=== PATIENT | female | born 1980 | race Caucasian/White ===

== ENCOUNTER 2016-05-23 09:22 | Emergency (ER) | payer OTHER ==
[2016-05-23 09:36] VITALS: BP 144/73
[2016-05-23] MEDS ORDERED: Ketorolac INJ* 60 MG/2 ML VIAL IM ONE (09:43)
--- NOTE | 2016-05-23 09:53 | ED ---
Lower Extremity - HPI Summary HPI Summary: Patient arrives with L ankle pain after inversion of ankle while tripping last evening. Denies knee or lower leg pain. Denies LOC or hitting her head. Patient had been drinking. States she did not come in until this morning because she thought the pain would go away and didn't injure it too bad, but today is unable to bear weight. She has not tried anything for the pain. She is unable to flex or extend at the ankle. Pulses intact bilaterally. Ecchymosis noted over the lateral part of the ankle. Patient otherwise healthy. - History of Current Complaint Chief Complaint: EDExtremityLower Stated Complaint: LT FOOT INJURY Time Seen by Provider: 05/23/16 09:24 Hx Obtained From: Patient Hx Last Menstrual Period: 10/12/14 Mechanism Of Injury: Fall From A Standing Position Onset of Pain: Immediate Onset/Duration: Hours Severity Initially: Moderate Severity Currently: Moderate Pain Intensity: 7 Pain Scale Used: 0-10 Numeric Timing: Constant Character Of Pain: Throbbing Associated Signs And Symptoms: Positive: Swelling, Bruising Aggravating Factor(s): Standing, Ambulation Alleviating Factor(s): Rest Able to Bear Weight: No - Risk Factors Gout Risk Factors: Negative DVT Risk Factors: Negative Septic Arthritis Risk Factor: Negative - Allergies/Home Medications Allergies/Adverse Reactions: Allergies Allergy/AdvReac Type Severity Reaction Status Date / Time Aspirin [ASA] Allergy Mild GI Upset Verified 05/23/16 09:36 Codeine Allergy Mild GI Upset Verified 05/23/16 09:36 Latex Allergy Mild Rash Verified 05/23/16 09:36 Penicillins Allergy Hives Verified 05/23/16 09:36 Ranitidine [From Zantac] Allergy Hives Verified 05/23/16 09:36 PMH/Surg Hx/FS Hx/Imm Hx Previously Healthy: Yes Endocrine/Hematology History: Reports: Hx Anemia Denies: Hx Anticoagulant Therapy, Hx Diabetes, Hx Thyroid Disease, Other Endocrine/Hematological Disorders Cardiovascular History: Reports: Hx Congestive Heart Failure, Other Cardiovascular Problems/Disorders - myopericarditis, cardiomyopathy, aortic valve disorder Denies: Hx Hypertension Respiratory History: Reports: Hx Pneumonia, Other Respiratory Problems/ Disorders - Bronchitis Denies: Hx Asthma, Hx Chronic Obstructive Pulmonary Disease (COPD) GI History: Reports: Hx Gastroesophageal Reflux Disease, Hx Ulcer - , Other GI Disorders - GERD History: Denies: Hx Renal Disease, Other Problems/Disorders Musculoskeletal History: Reports: Hx Back Problems Denies: Other Musculoskeletal History Sensory History: Denies: Other Sensory Impairments Opthamlomology History: Denies: Other Sensory Impairments Neurological History: Reports: Hx Headaches, Hx Migraine Denies: Other Neuro Impairments/Disorders Psychiatric History: Reports: Hx Anxiety, Hx Depression Denies: Other Psychiatric Issues/Disorders - Surgical History Surgery Procedure, Year, and Place: Tubal Ligation; lymph node removed x 2 - Immunization History Date of Tetanus Vaccine: unknown to patient Date of Influenza Vaccine: None Infectious Disease History: No Infectious Disease History: Denies: Hx Clostridium Difficile, Hx Hepatitis, Hx Human Immunodeficiency Virus (HIV), Hx of Known/Suspected MRSA, Hx Shingles, Hx Tuberculosis, Hx Known/ Suspected VRE, Hx Known/Suspected VRSA, History Other Infectious Disease, Traveled Outside the [place] in Last 30 Days - Family History Known Family History: Positive: Hypertension - Social History Occupation: Employed Full-time Lives: With Family Alcohol Use: Rare Substance Use Type: Reports: None Hx Tobacco Use: Yes Smoking Status (MU): Current Every Day Smoker Type: Cigarettes Amount Used/How Often: 5/DAY Have You Smoked in the Last Year: Yes Review of Systems Constitutional: Negative Eyes: Negative Cardiovascular: Negative Genitourinary: Negative Positive: Arthralgia, Decreased ROM, Edema Skin: Negative Neurological: Negative Psychological: Normal All Other Systems Reviewed And Are Negative: Yes Physical Exam Triage Information Reviewed: Yes Vital Signs On Initial Exam: Initial Vitals Temp Pulse Resp BP Pulse Ox 98.2 F 88 16 144/73 100 05/23/16 09:25 05/23/16 09:25 05/23/16 09:25 05/23/16 09:25 05/23/16 09:25 Vital Signs Reviewed: Yes Appearance: Positive: Well-Appearing, Well-Nourished, Pain Distress Skin: Positive: Warm, Skin Color Reflects Adequate Perfusion, Other - ecchymosis over lateral aspect of left ankle with slight swelling Eyes: Positive: Normal, EOMI, PEDRO, Conjunctiva Clear Neck: Positive: Supple, Nontender Respiratory/Lung Sounds: Positive: Clear to Auscultation Cardiovascular: Positive: Normal Musculoskeletal: Positive: Limited @, Interruption @, Pain @ - left lateral ankle. unable to flex or extend. Unable to perform anterior drawer. Unable to perform talar tilt test d/t pain. Tinel test negative. Good pulses bilaterally. ROM and strength limited d/t pain. Neurological: Positive: Sensory/Motor Intact, Speech Normal Psychiatric: Positive: Normal Diagnostics - Vital Signs Vital Signs Temp Pulse Resp BP Pulse Ox 05/23/16 09:25 98.2 F 88 16 144/73 100 - Laboratory Lab Statement: Any lab studies that have been ordered have been reviewed, and results considered in the medical decision making process. Lower Extremity Course/Dx - Course Course Of Treatment: Patient sent to xray. Toradol given for pain. Negative for fracture. Patient already had crutches. Note sent to be off work until tuesday. Follow up with ortho as needed. - Diagnoses Differential Diagnosis/HQI/PQRI: Positive: Fracture (Closed), Sprain, Strain Provider Diagnoses: Ankle sprain Discharge - Discharge Plan Condition: Stable Disposition: HOME Prescriptions: Naproxen [Naproxen 500 MG TABS] 500 mg PO BID #20 tab Ondansetron ODT TAB* [Zofran Odt TAB*] 4 mg PO Q6H PRN #15 tab.odt MDD 6 PRN Reason: Nausea Patient Education Materials: Ankle Sprain (ED), Ankle Exercises (GEN) Forms: *Work Release Referrals: Tatiana Perea MD [Primary Care Provider] - Additional Instructions: Soft Tissue Injuries Notes to patient from your provider: Protect the area. For your comfort level, do not bear weight, pull or push until you can injury is somewhat healed. This may involve the need for immobilization or crutches for a period of time. Rest the involved area, but not too long. You may need to be off your injury for some time to allow for healing, however excessive immobilization of joints can lead to stiffness and delay healing time. Early mobilization is encouraged if it is pain-free. Ice. Not directly on the skin. Cover with a towel. Apply ice no more than 30 minutes at a time Compression: You may use an venice wrap bandage over the injury to decrease swelling. Again, this should be limited and be taken off periodically to encourage early range of motion and mobilization. Elevate: Try to elevate the injured area above the heart whenever possible. Rehabilitation: Follow up with an orthopedic physician. They may encourage a short period of rehabilitation of the injury to limit the likelihood of permanent joint stiffness and instability.
--- NOTE | 2016-05-23 10:48 | RAD ---
INDICATION: Left ankle pain after inversion injury COMPARISON: Left foot radiograph dated October 23, 2013 TECHNIQUE: 3 views of the left ankle were obtained. FINDINGS: The well corticated bones exhibit normal alignment. Joint spaces appear maintained. No fracture is seen. IMPRESSION: Normal ankle radiograph. If the patient's symptoms persist, follow-up imaging is recommended.
== END 2016-05-23 11:06 | disposition home or self-care (01) ==
LOC: ED 09:22
DX: S93.402A Sprain of unspecified ligament of left ankle, initial encounter (principal); W18.09XA Striking against other object with subsequent fall, initial encounter; Y92.9 Unspecified place or not applicable; I50.9 Heart failure, unspecified; K21.9 Gastro-esophageal reflux disease without esophagitis; F17.210 Nicotine dependence, cigarettes, uncomplicated; F41.9 Anxiety disorder, unspecified; F32.9 Major depressive disorder, single episode, unspecified
CPT/HCPCS: 96372; 99282; J1885

== ENCOUNTER 2016-08-01 15:08 | Emergency (ER) | payer OTHER ==
[2016-08-01 15:46] VITALS: BP 130/69
[2016-08-01] MEDS ORDERED: traMADol TAB* 50 MG PO ONE (15:48)
--- NOTE | 2016-08-01 15:50 | UC ---
Lower Extremity/Ankle HPI - HPI Summary HPI Summary: patient had a twisting injury to the left foot 7 weeks ago, was seen in the Er and Dx with sprain. she has been unable to tolertate the spint feels like the top and lateral side of left foot is burning and tender to touch. - History of Current Complaint Chief Complaint: UCLowerExtremity Stated Complaint: LEFT FOOT PAIN Time Seen by Provider: 08/01/16 15:32 Hx Obtained From: Patient Hx Last Menstrual Period: 07/14/16 ?: No Onset/Duration: Sudden Onset, Lasting Weeks Severity Initially: Severe Severity Currently: Moderate Aggravating Factor(s): Standing, Ambulation Alleviating Factor(s): Nothing Able to Bear Weight: Yes - Allergies/Home Medications Allergies/Adverse Reactions: Allergies Allergy/AdvReac Type Severity Reaction Status Date / Time Aspirin [ASA] Allergy Mild GI Upset Verified 08/01/16 15:33 Codeine Allergy Mild GI Upset Verified 08/01/16 15:33 Latex Allergy Mild Rash Verified 08/01/16 15:33 Penicillins Allergy Hives Verified 08/01/16 15:33 Ranitidine [From Zantac] Allergy Hives Verified 08/01/16 15:33 Home Medications: Home Medications Ferrous Sulfate [Fe Tabs] 325 mg PO DAILY 08/01/16 [History Confirmed 08/01/16] Potassium 2 tab PO DAILY 08/01/16 [History Confirmed 08/01/16] PMH/Surg Hx/FS Hx/Imm Hx Previously Healthy: Yes Endocrine History Of: Denies: Diabetes, Thyroid Disease Cardiovascular History Of: Reports: Cardiac Disorders - see below, Congestive Heart Failure Denies: Hypertension Respiratory History Of: Reports: Pneumonia Denies: COPD, Asthma GI/ History Of: Reports: Gastroesophageal Reflux, Ulcer - Denies: Renal Disease Neurological History Of: Reports: Migraine Psychological History Of: Reports: Anxiety, Depression Other History Of: Negative For: Anticoagulant Therapy - Surgical History Surgical History: Yes Surgery Procedure, Year, and Place: Tubal Ligation; left inguinal lymph node removed x 2 - Family History Known Family History: Positive: Hypertension - Social History Alcohol Use: Rare Substance Use Type: None Smoking Status (MU): Current Every Day Smoker Type: Cigarettes Amount Used/How Often: 5/DAY Have You Smoked in the Last Year: Yes Household Exposure Type: Cigarettes - Immunization History Most Recent Influenza Vaccination: never Most Recent Tetanus Shot: unknown Most Recent Pneumonia Vaccination: never Review of Systems Constitutional: Negative Skin: Bruising Eyes: Negative ENT: Negative Respiratory: Negative Cardiovascular: Negative Gastrointestinal: Negative Genitourinary: Negative Motor: Negative Neurovascular: Negative Musculoskeletal: Arthralgia, Myalgia Neurological: Negative, Paresthesia - left foot, Other Psychological: Negative All Other Systems Reviewed And Are Negative: Yes Physical Exam Triage Information Reviewed: Yes Appearance: Well-Appearing, Well-Nourished, Pain Distress Vital Signs: Initial Vital Signs Temp 98.8 F 08/01/16 15:21 Pulse 75 08/01/16 15:21 Resp 18 08/01/16 15:21 BP 130/69 08/01/16 15:21 Vital Signs Reviewed: Yes Eye Exam: Normal Eyes: Positive: Conjunctiva Clear ENT Exam: Normal ENT: Positive: Hearing grossly normal, Pharynx normal, TMs normal Dental Exam: Normal Neck exam: Normal Neck: Positive: Supple, Nontender, No Lymphadenopathy Respiratory Exam: Normal Respiratory: Positive: Chest non-tender, Lungs clear, Normal breath sounds Cardiovascular Exam: Normal Cardiovascular: Positive: RRR, No Murmur, Pulses Normal Abdominal Exam: Normal Abdomen Description: Positive: Nontender, No Organomegaly, Soft Bowel Sounds: Positive: Present Musculoskeletal Exam: Normal Musculoskeletal: Positive: No Edema, Strength Limited @, ROM Limited @ - in left foot, praonation ans supination, raising up on toes Neurological Exam: Normal Neurological: Positive: Alert Psychological Exam: Normal Skin Exam: Normal Skin: Positive: Other - old bruising over the 5th met, left foot Lower Extremity Course/Dx - Course Course Of Treatment: hx obtained, exam performed, xray negative, ibuprofen given. prescribed gabapentin for nerve pain - Differential Dx/Diagnosis Differential Diagnosis/HQI/PQRI: Contusion, Dislocation, Sprain, Strain Provider Diagnoses: foot pain. neuralgia Discharge - Discharge Plan Condition: Stable Disposition: HOME Patient Education Materials: Paresthesia (ED) Additional Instructions: I think your pain in your foot is related to nerve pain. wear the post op shoe for support and start the gabapentin., follow up with your PCP.
[2016-08-01] MEDS ORDERED: Ibuprofen TAB* 600 MG PO ONE (16:06)
--- NOTE | 2016-08-01 16:35 | RAD ---
Indication: Foot pain. 3 views of the foot are reviewed. There is suggestion of a nondisplaced fracture of the superior anterior portion of the calcaneus. Fifth metatarsal is otherwise unremarkable. IMPRESSION: Nondisplaced fracture anterior superior calcaneus just adjacent to the calcaneal navicular joint.
== END 2016-08-01 16:51 | disposition home or self-care (01) ==
LOC: UCCORT 15:08
DX: M79.672 Pain in left foot (principal); I50.9 Heart failure, unspecified; K21.9 Gastro-esophageal reflux disease without esophagitis; G43.909 Migraine, unspecified, not intractable, without status migrainosus; F41.8 Other specified anxiety disorders; Z88.6 Allergy status to analgesic agent; Z88.5 Allergy status to narcotic agent; Z88.0 Allergy status to penicillin; F17.210 Nicotine dependence, cigarettes, uncomplicated
CPT/HCPCS: 99213; A9270-GY; G0463

== ENCOUNTER 2016-08-16 14:48 | Emergency (ER) | payer OTHER ==
[2016-08-16 15:04] VITALS: BP 142/64
--- NOTE | 2016-08-16 15:50 | UC ---
Eye Complaint HPI - HPI Summary HPI Summary: Pt has had painless copious tearing from L eye for 2-3 months. Saw PCP, was referred to ophtho, made an appointment in June, then cancelled it due to family . Has not made another appointment. Sx remained unchanged until 3-4 days ago when both of pt's eyes turned red, gritty, irritated, and developed mild lid swelling. Went to see PCP again and was Rx tobra drops. Since then eyelids have become much more swollen, red, flaky, and irritated. Eyes still very irritated. - History of Current Complaint Chief Complaint: UCEye Stated Complaint: EYE ISSUE Time Seen by Provider: 08/16/16 15:16 Hx Obtained From: Patient Hx Last Menstrual Period: 10/12/14 ?: No Onset/Duration: Gradual Onset, Lasting Weeks Timing: Constant Severity Initially: Mild Severity Currently: Moderate Location of Injury: Conjunctiva, Eye Lid (lower), Eye Lid (upper) Character: Dull Aggravating Factor(s): Light, Blinking Alleviating Factor(s): Nothing Associated Signs And Symptoms: Positive: Drainage (Clear). Negative: Drainage ( Purulent), Vision Impairment Bilateral - Allergies/Home Medications Allergies/Adverse Reactions: Allergies Allergy/AdvReac Type Severity Reaction Status Date / Time Aspirin [ASA] Allergy Mild GI Upset Verified 08/01/16 15:33 Codeine Allergy Mild GI Upset Verified 08/01/16 15:33 Latex Allergy Mild Rash Verified 08/01/16 15:33 Penicillins Allergy Hives Verified 08/01/16 15:33 Ranitidine [From Zantac] Allergy Hives Verified 08/01/16 15:33 PMH/Surg Hx/FS Hx/Imm Hx Endocrine History Of: Denies: Diabetes, Thyroid Disease Cardiovascular History Of: Reports: Cardiac Disorders - cardiomyopathy, aeortic valve disorder, Congestive Heart Failure Denies: Hypertension Respiratory History Of: Reports: Pneumonia Denies: COPD, Asthma GI/ History Of: Reports: Gastroesophageal Reflux, Ulcer - Denies: Renal Disease Neurological History Of: Reports: Migraine Psychological History Of: Reports: Anxiety, Depression Other History Of: Negative For: Anticoagulant Therapy - Surgical History Surgical History: Yes Surgery Procedure, Year, and Place: Tubal Ligation; lymph node removed x 2 - Family History Known Family History: Positive: Hypertension - Social History Alcohol Use: Rare Substance Use Type: None Smoking Status (MU): Current Every Day Smoker Type: Cigarettes Amount Used/How Often: 5/DAY Have You Smoked in the Last Year: Yes Household Exposure Type: Cigarettes - Immunization History Most Recent Influenza Vaccination: never Most Recent Tetanus Shot: unknown Most Recent Pneumonia Vaccination: never Review of Systems Constitutional: Negative Skin: Negative Eyes: Drainage, Eye Redness ENT: Negative Respiratory: Negative Cardiovascular: Negative Gastrointestinal: Negative Genitourinary: Negative Motor: Negative Neurovascular: Negative Musculoskeletal: Negative Neurological: Negative Psychological: Negative All Other Systems Reviewed And Are Negative: Yes Physical Exam Triage Information Reviewed: Yes Appearance: Well-Appearing, No Pain Distress, Well-Nourished Vital Signs: Initial Vital Signs Temp 98.8 F 08/16/16 14:58 Pulse 65 08/16/16 14:58 Resp 18 08/16/16 14:58 BP 142/64 08/16/16 14:58 Pulse Ox 100 08/16/16 14:58 Eye Exam: Other - PERRL Eyes: Positive: Conjunctiva Inflamed, Other: - bilat eyelids red, puffy, flaky ENT Exam: Normal ENT: Positive: Hearing grossly normal, Pharynx normal, Nasal drainage, TMs normal Dental Exam: Normal Neck exam: Normal Neck: Positive: Supple, Nontender, No Lymphadenopathy Respiratory Exam: Normal Respiratory: Positive: Chest non-tender, Lungs clear, Normal breath sounds, No respiratory distress, No accessory muscle use Cardiovascular Exam: Normal Cardiovascular: Positive: RRR, No Murmur Musculoskeletal Exam: Normal Neurological Exam: Normal Neurological: Positive: Alert Psychological Exam: Normal Skin Exam: Other - redness and swelling in eyelids Eye Complaint Course/Dx - Differential Dx/Diagnosis Provider Diagnoses: bilat conjunctivitis, likely viral. contact dermatitis due to eye medicine Discharge - Discharge Plan Condition: Stable Disposition: HOME Prescriptions: Erythromycin (Ophth) [Ilotycin] 1 applic BOTH EYES TID #1 oin predniSONE TAB* [Deltasone TAB*] 50 mg PO DAILY #2 tab Patient Education Materials: Conjunctivitis (ED), Contact Dermatitis (ED) Referrals: Gallito Mcrae MD [Medical Doctor] - Tatiana Perea MD [Primary Care Provider] - 2 Weeks Additional Instructions: I do not know why you have had copious tearing from your L eye for months. You should see the computer forensics examiner about this. You have developed a mild eye infection in both eyes since late last week. As we discussed, your symptoms are strongly viral and will probably take a week or more to go away. Because we can't really tell by looking, however, I am changing your antibiotic to an ointment in case there is a bacterial cause. STOP the tobramycin drops. I believe these are causing a contact dermatitis ( skin allergy) which is making your eyes more red, itchy, and swollen. The prednisone should help with this.
== END 2016-08-16 15:48 | disposition home or self-care (01) ==
LOC: UCEAST 14:48
DX: B30.9 Viral conjunctivitis, unspecified (principal); L25.1 Unspecified contact dermatitis due to drugs in contact with skin; I42.9 Cardiomyopathy, unspecified; I35.8 Other nonrheumatic aortic valve disorders; I50.9 Heart failure, unspecified; K21.9 Gastro-esophageal reflux disease without esophagitis; G43.909 Migraine, unspecified, not intractable, without status migrainosus; F41.9 Anxiety disorder, unspecified; F32.9 Major depressive disorder, single episode, unspecified; F17.210 Nicotine dependence, cigarettes, uncomplicated; Z88.5 Allergy status to narcotic agent; Z87.01 Personal history of pneumonia (recurrent); Z88.0 Allergy status to penicillin; Z88.6 Allergy status to analgesic agent; Z91.040 Latex allergy status
CPT/HCPCS: 99212; G0463

== ENCOUNTER 2016-09-04 10:23 | Emergency (ER) | payer OTHER ==
[2016-09-04 10:41] VITALS: BP 134/66
--- NOTE | 2016-09-04 11:17 | UC ---
Complaint Female HPI - HPI Summary HPI Summary: complaint of vaginal itchiness that started last night concerned that his partner might have an STD because he is taking medication for swelling on his penis partner states that his penis and testicles is swollen and tender but he will not tell her why he is taking the medicaiton mentions that he has had chlamydia and gonnorrhea in the recent past denies dysuria, abdominal pain, fever - History Of Current Complaint Chief Complaint: UCSTDScreening Stated Complaint: STD TESTING Time Seen by Provider: 09/04/16 10:57 Hx Obtained From: Patient Hx Last Menstrual Period: 09/01/16 - Allergies/Home Medications Allergies/Adverse Reactions: Allergies Allergy/AdvReac Type Severity Reaction Status Date / Time Aspirin [ASA] Allergy Mild GI Upset Verified 09/04/16 10:41 Codeine Allergy Mild GI Upset Verified 09/04/16 10:41 Latex Allergy Mild Rash Verified 09/04/16 10:41 Penicillins Allergy Hives Verified 09/04/16 10:41 Ranitidine [From Zantac] Allergy Hives Verified 09/04/16 10:41 PMH/Surg Hx/FS Hx/Imm Hx Previously Healthy: Yes Endocrine History Of: Denies: Diabetes, Thyroid Disease Cardiovascular History Of: Reports: Cardiac Disorders - cardiomyopathy, aeortic valve disorder, Congestive Heart Failure Denies: Hypertension Respiratory History Of: Reports: Pneumonia Denies: COPD, Asthma GI/ History Of: Reports: Gastroesophageal Reflux, Ulcer - Denies: Renal Disease Neurological History Of: Reports: Migraine Psychological History Of: Reports: Anxiety, Depression Other History Of: Negative For: Anticoagulant Therapy - Surgical History Surgical History: Yes Surgery Procedure, Year, and Place: Tubal Ligation; lymph node removed x 2 - Family History Known Family History: Positive: Hypertension Negative: Cardiac Disease, Diabetes - Social History Occupation: Employed Full-time Lives: With Family Alcohol Use: Rare Substance Use Type: None Smoking Status (MU): Current Every Day Smoker Type: Cigarettes Amount Used/How Often: 5/DAY Have You Smoked in the Last Year: Yes Household Exposure Type: Cigarettes Cessation Counseling: Patient Advised to Stop - Immunization History Most Recent Influenza Vaccination: never Most Recent Tetanus Shot: unknown Most Recent Pneumonia Vaccination: never Review of Systems Constitutional: Negative Skin: Negative Eyes: Negative ENT: Negative Respiratory: Negative Cardiovascular: Negative Gastrointestinal: Negative Genitourinary: Other - vaginal iching burning, discharge Motor: Negative Neurovascular: Negative Musculoskeletal: Negative Neurological: Negative Psychological: Negative All Other Systems Reviewed And Are Negative: Yes Physical Exam Triage Information Reviewed: Yes Appearance: No Pain Distress, Well-Nourished Vital Signs: Initial Vital Signs Temp 97.5 F 09/04/16 10:35 Pulse 93 09/04/16 10:35 Resp 20 09/04/16 10:35 BP 134/66 09/04/16 10:35 Pulse Ox 100 09/04/16 10:35 Vital Signs Reviewed: Yes Eyes: Positive: Conjunctiva Clear ENT: Positive: Pharynx normal, TMs normal Neck: Positive: No Lymphadenopathy Respiratory: Positive: Lungs clear, Normal breath sounds, No respiratory distress Cardiovascular: Positive: RRR, No Murmur, Pulses Normal Abdomen Description: Positive: Nontender, No Organomegaly, Soft. Negative: CVA Tenderness (R), CVA Tenderness (L), Distended, Guarding Bowel Sounds: Positive: Present Musculoskeletal Exam: Normal Neurological: Positive: Alert Psychological Exam: Normal Skin Exam: Normal - Additional Comments External genitalia without erythema, exudate or discharge. Vaginal vault is without discharge. Cervix is of normal color without lesion. The os is closed. There is no bleeding noted. Uterus is noted to be of normal size and nontender. No cervical motion tenderness is seen. No masses are palpated. The adnexa are without masses or tenderness. Complaint Female Dx - Course Course Of Treatment: exam completed. will treat for chlamydia- will treat for other possible infections following testing - Differential Dx/Diagnosis Provider Diagnoses: std testing Discharge - Discharge Plan Condition: Stable Disposition: HOME Prescriptions: Gabapentin CAP(*) [Neurontin 100 mg CAP(*)] 100 mg PO TID #9 cap Patient Education Materials: Sexually Transmitted Diseases (ED), Safe Sex (ED) Referrals: Tatiana Perea MD [Primary Care Provider] - Additional Instructions: you have been treated for chlamydia infection Please call the urgent care center for results of your STD testing in 4 days Please review your discharge instructions. If your symptoms do not improve please call your primary care provider or return to urgent care. Your blood pressure is pre-hypertensive reading. Please contact your primary care provider within 1 day -4 weeks for further evaluation
[2016-09-04] MEDS ORDERED: Azithromycin TAB* 250 MG PO ONE (11:33)
--- NOTE | 2016-09-05 23:12 | UC ---
Progress - Progress Note Progress Note: VAGINAL SWAB POSITIVE FOR BV. METRONIDAZOLE ERX SENT TO [facility]. FOLLOW- UP PCP IF NEEDED.
[2016-09-06 12:19] LABS: Syphilis Index < 0.1 Index
== END 2016-09-04 11:51 | disposition home or self-care (01) ==
LOC: UCEAST 10:23
DX: Z11.3 Encounter for screening for infections with a predominantly sexual mode of transmission (principal); I42.9 Cardiomyopathy, unspecified; I35.8 Other nonrheumatic aortic valve disorders; I50.9 Heart failure, unspecified; K21.9 Gastro-esophageal reflux disease without esophagitis; G43.909 Migraine, unspecified, not intractable, without status migrainosus; F41.9 Anxiety disorder, unspecified; F32.9 Major depressive disorder, single episode, unspecified; F17.210 Nicotine dependence, cigarettes, uncomplicated; Z88.0 Allergy status to penicillin; Z88.6 Allergy status to analgesic agent; Z87.01 Personal history of pneumonia (recurrent); Z88.5 Allergy status to narcotic agent; Z91.040 Latex allergy status
CPT/HCPCS: 36415; 86592; 86703; 86803; 87480; 87491; 87510; 87591; 87661; 99212; A9270-GY; G0463

== ENCOUNTER 2016-12-07 14:56 | Emergency (ER) | payer OTHER ==
--- NOTE | 2016-12-07 15:48 | RAD ---
Indication: Twisting injury to the LEFT foot 8 months ago. Increased pain over the last 3 weeks. Pain and swelling lateral foot and plantar surface in arch. Proximal radiation of pain. Comparison: August 01, 2016 Technique: AP, lateral, and oblique views LEFT foot. Report: Intra-articular fracture at the superior distal margin of the calcaneus at the calcaneocuboid calcaneal navicular articulation without evidence for osseous bridging concerning for nonunion. Mild calcaneal cuboid joint osteophytosis. Normal articular alignment. Unremarkable soft tissue contours. IMPRESSION: Intra-articular fracture at the superior distal margin of the calcaneus at the calcaneocuboid calcaneonavicular articulation without evidence for osseous bridging consistent with nonunion. Potential pseudoarthrosis formation.
[2016-12-07] MEDS ORDERED: HYDROcodone/ACETAMIN 5-325 MG* 1 TAB PO ONE (16:10)
--- NOTE | 2016-12-07 17:06 | UC ---
Lower Extremity/Ankle HPI - HPI Summary HPI Summary: Pt presents to care with complaint of persistent, ongoing left foot. Pt states approx 8 months ago slid forward and slightly inverted foot. Pt sates has had pain since. Pt reports she has been taking APAP and Motrin without improvement. Pt reports pain worse with standing and walking. no ankle, knee, hip pain. No paresthesia. No weakness. Pt reports has been evaluated for injury at [facility] and . Pt states imaging was neg for fracture, but persistent pain. Pt denies new injuries. Pt states has crutches and walking shoe, but not currently using Pt's medications reviewed at this visit - History of Current Complaint Chief Complaint: UCLowerExtremity Stated Complaint: FOOT INJURY Time Seen by Provider: 12/07/16 15:45 Hx Last Menstrual Period: 10/28/16 Onset/Duration: Lasting Weeks Severity Currently: Moderate Pain Intensity: 7 Aggravating Factor(s): Standing, Ambulation Alleviating Factor(s): Rest, Elevation - Allergies/Home Medications Allergies/Adverse Reactions: Allergies Allergy/AdvReac Type Severity Reaction Status Date / Time Aspirin [ASA] Allergy Mild GI Upset Verified 12/07/16 17:03 Codeine Allergy Mild GI Upset Verified 12/07/16 17:03 Latex Allergy Mild Rash Verified 12/07/16 17:03 Penicillins Allergy Hives Verified 12/07/16 17:03 Ranitidine [From Zantac] Allergy Hives Verified 12/07/16 17:03 Home Medications: Home Medications Fluticasone HFA 110 mcg(NF) [Flovent HFA 110 mcg(NF)] 1 puff INH BID 12/07/16 [ History Confirmed 12/07/16] PMH/Surg Hx/FS Hx/Imm Hx Previously Healthy: No Cardiovascular History: Other - cardiomyopathy, decreased EF, myocardits Other Cardiovascular History: cardiomyopathy, decreased EF, myocardits Other History Of: Negative For: Anticoagulant Therapy - Surgical History Surgical History: Yes Surgery Procedure, Year, and Place: Tubal Ligation; lymph node removed x 2 - Family History Known Family History: Positive: Hypertension Negative: Cardiac Disease, Diabetes - Social History Occupation: Unemployed Lives: With Family Alcohol Use: Rare Substance Use Type: None Smoking Status (MU): Light Every Day Tobacco Smoker Type: Cigarettes Amount Used/How Often: 5/DAY Have You Smoked in the Last Year: Yes Household Exposure Type: Cigarettes - Immunization History Most Recent Influenza Vaccination: never Most Recent Tetanus Shot: unknown Most Recent Pneumonia Vaccination: never Review of Systems Constitutional: Negative Skin: Negative Eyes: Negative ENT: Negative Respiratory: Negative Cardiovascular: Negative Gastrointestinal: Negative Genitourinary: Negative Motor: Negative Neurovascular: Negative Musculoskeletal: Other: - Left foot pain - heel Neurological: Negative Psychological: Negative All Other Systems Reviewed And Are Negative: Yes Physical Exam Triage Information Reviewed: Yes Appearance: Well-Appearing, Well-Nourished, Pain Distress - pain with walking left foot - limp Vital Signs: Initial Vital Signs Temp 98.8 F 12/07/16 15:05 Pulse 105 12/07/16 15:05 Resp 18 12/07/16 15:05 BP 133/78 12/07/16 15:05 Pulse Ox 100 12/07/16 15:05 Eyes: Negative: Discharge ENT: Positive: Hearing grossly normal Neck exam: Normal Neck: Positive: Supple, Nontender Respiratory: Positive: Normal breath sounds, No respiratory distress, No accessory muscle use Cardiovascular: Positive: RRR, No Murmur, Other: - 2+ DP, PT CBT < 2 sec Musculoskeletal: Positive: Other: - + flex/ext knee + flex/ext ankle with pain dorsum foot "inside" No pain along MT, tarsals, phalanges Neurological: Positive: Alert, Muscle Tone Normal, Other: - + gross sensation throughout Psychological Exam: Normal Psychological: Positive: Normal Response To Family Skin Exam: Normal Diagnostics - Radiology No standard instances Xray Interpretation: Positive (See Comments) - : 1980 Age: 36 Sex: F Location: [facility] Exam Date: 12/07/16 1506 ADM Status: PRE ER Order Information: FOOT LEFT 3+ VWS Accession Number: [id number] CPT: 47391 Indication: Twisting injury to the LEFT foot 8 months ago. Increased pain over the last 3 weeks. Pain and swelling lateral foot and plantar surface in arch. Proximal radiation of pain. Comparison: August 01, 2016 Technique: AP, lateral, and oblique views LEFT foot. Report: Intra-articular fracture at the superior distal margin of the calcaneus at the calcaneocuboid calcaneal navicular articulation without evidence for osseous bridging concerning for nonunion. Mild calcaneal cuboid joint osteophytosis. Normal articular alignment. Unremarkable soft tissue contours. IMPRESSION: Intra-articular fracture at the superior distal margin of the calcaneus at the calcaneocuboid calcaneonavicular articulation without evidence for osseous bridging consistent with nonunion. Potential pseudoarthrosis formation. <Electronically signed by Tevin Lipscomb MD in [place]> 12/07/16 1545 Dictated By: Tevin Lipscomb MD Dictated Date/Time: 1545 Transcribed Date/Time: 12/07/16 1539 Radiology Interpretation Completed By: Radiologist Lower Extremity Course/Dx - Course Course Of Treatment: pt presents with persistent pain in left foot. review of previous visit, pt with + calcaneal fracture identified by radiologist on previous imaging but not noted on provider note. I discussed this with pt. Today's imaging also demonstrates same fx. REviewed case with orthopedics - no additional imaging today - requested joel lund. Pt schedule with ortho, Dr. White -10:45am -. Pt given Rx for [place]. Management notified and met with patient. Pt states understanding - assured pt would review chart and discuss care. Pt expresses comfort and agreement. all questions asked and answered - Differential Dx/Diagnosis Provider Diagnoses: calcaneal fracture - Physician Notifications Discussed Patient Care With: Aj Ocampo - joanne Song, f/u with Dr. White Time Discussed With Above Provider: 16:28 Discharge - Discharge Plan Condition: Stable Disposition: HOME Prescriptions: HYDROcodone/ACETAMIN 5-325 MG* [[place] 5-325 TAB*] 1 - 2 tab PO Q6H PRN #20 tab MDD 8 PRN Reason: Pain Patient Education Materials: Calcaneal Fracture (ED) Referrals: Aj White MD [Medical Doctor] - (,12/09/16 10:45am ) Tatiana Perea MD [Primary Care Provider] - Additional Instructions: - Okay to alternate ibuprofen (Motrin, Advil) 600mg and Tylenol product ( Tylenol or [place]) every 3 hours for pain. Take with food. do NOT drive, operate machinery or drink alcohol while taking [place] -wear walking shoe until you are seen in follow-up by the orthopedic provider - Okay to use crutches as needed for pain - you have an appointment with Dr. White, orthopedic inclusion specialist, on , 12/09/16 at 10:45. Contact his office with questions or concerns [phone]
[2016-12-07 17:15] VITALS: BP 150/82
== END 2016-12-07 17:10 | disposition home or self-care (01) ==
LOC: UCEAST 14:56
DX: S92.062A Displaced intraarticular fracture of left calcaneus, initial encounter for closed fracture (principal); X50.1XXA Overexertion from prolonged static or awkward postures, initial encounter; Y93.9 Activity, unspecified; Y92.9 Unspecified place or not applicable; I42.9 Cardiomyopathy, unspecified; Z88.5 Allergy status to narcotic agent; Z88.0 Allergy status to penicillin; Z88.8 Allergy status to other drugs, medicaments and biological substances; Z88.6 Allergy status to analgesic agent; Z91.040 Latex allergy status; F17.210 Nicotine dependence, cigarettes, uncomplicated
CPT/HCPCS: 99213; G0463

== ENCOUNTER 2017-01-10 07:41 | Day surgery (SDC) | payer OTHER ==
[~2017-01-10 07:41] MED LIST: Buffered Lidocaine 0.9% SYRIN* 5 ML/SYR SYRINGE INTRADERM ONE; Dexamethasone TAB* 4 MG PO ONE; Famotidine IV* 10 MG/ML 2 ML (20 mg) IV ONE; Morphine INJ* 2 MG/ML 1 ML CARPUJECT IV PRN; NS 0.9% 1000 ML* 1,000 ML IV SCH; PROCHLORPERAZINE INJ 5 MG/ML 2 ML VIAL IV PRN; Scopolamine 1.5 mg* PATCH TRANSDERM PRN; fentaNYL* 50 MCG/ML 2 ML VIAL (100 MCG VIAL) IV PRN
[2017-01-10] MEDS ORDERED: Dexamethasone IV* 4 MG/ML 1 ML (4 MG) ONE (07:48)
[2017-01-10] MEDS ORDERED: Clindamycin 900 MG IVPREMIX(* 900 MG/50 ML SDV IV ONE (07:49)
[2017-01-10] MEDS ORDERED: Buffered Lidocaine 0.9% SYRIN* 5 ML/SYR SYRINGE ONE (07:49)
[2017-01-10] MEDS ORDERED: Famotidine IV* 10 MG/ML 2 ML (20 mg) ONE (07:49)
[2017-01-10] MEDS ORDERED: Dexamethasone TAB* 4 MG ONE ×2 (07:50)
[2017-01-10] MEDS ORDERED: Lidocaine 2% PF* 10 ML AMP ONE (08:19)
[2017-01-10] MEDS ORDERED: fentaNYL* 50 MCG/ML 2 ML VIAL (100 MCG VIAL) ONE (08:23)
[2017-01-10] MEDS ORDERED: Midazolam* 1 MG/ML 5 ML VIAL (5 MG) ONE (08:23)
[2017-01-10] MEDS ORDERED: PROCHLORPERAZINE INJ 5 MG/ML 2 ML VIAL ONE (08:50)
[2017-01-10] MEDS ORDERED: Lidocaine 2% PF * 5 ML VIAL ONE (08:50)
[2017-01-10] MEDS ORDERED: Propofol* 10 MG/ML 20 ML BTL IV PUSH ONE (08:50)
[2017-01-10] MEDS ORDERED: Ondansetron INJ* 2 MG/ML VIAL ONE (08:50)
[2017-01-10] MEDS ORDERED: Morphine INJ* 10 MG/ML 1 ML CARPUJECT ONE (08:59)
[2017-01-10] MEDS ORDERED: Metoprolol Tartrate IV* 1 MG/ML 5 ML VIAL ONE (09:01)
[2017-01-10] MEDS ORDERED: Ketorolac INJ* 30 MG/ML 1 ML VIAL ONE (09:24)
[2017-01-10] MEDS ORDERED: Bupivacaine 0.5% SDV PF* 30 ML VIAL ONE (09:29)
[2017-01-10] MEDS ORDERED: oxyCODONE/Acetamin 5/325 MG* TAB ONE (10:09)
[2017-01-10] MEDS: oxyCODONE/Acetamin 5/325 MG* TAB PO PRN ×2 (10:10→10:13)
[2017-01-10 10:46] VITALS: BP 119/63
--- NOTE | 2017-01-11 03:27 | OP ---
DATE OF SURGERY: 01/10/17 - [facility] DATE OF : 78 ATTENDING SURGEON: Aj White MD AIDS COUNSELOR: Nancy Roy PA-C ANESTHESIOLOGIST: Dong Law MD ANESTHESIA: General PRE-OP DIAGNOSIS: Painful nonunion left anterior process calcaneus. POST-OP DIAGNOSIS: Painful nonunion left anterior process calcaneus. OPERATIVE PROCEDURE: Excision left anterior process calcaneus. DESCRIPTION OF PROCEDURE: The patient was taken to the operating room where a longitudinal incision was made over the sinus tarsi. We incised down over the calcaneocuboid joint and identified the joint itself and the anterior process of the calcaneus. Using a microsagittal saw, I removed the anterior process decompressing it all the way over to the edge of the navicular. We then irrigated thoroughly, closing by pulling some of the extensor brevis musculature into the defect, some subcu for the soft tissue and some nylon for the skin. A compression dressing was applied. [id number]/CPS #: [id number] [facility]
[2017-01-13] MEDS ORDERED: Scopolomine PATCH Remove* 1 NOTE MISC PATCH OFF ONE (05:54)
== END 2017-01-10 11:08 | disposition home or self-care (01) ==
LOC: OR 07:41
PROVIDERS: ATTEND Orthopaedic Surgery
DX: S92.022K Displaced fracture of anterior process of left calcaneus, subsequent encounter for fracture with nonunion (principal); X50.0XXD Overexertion from strenuous movement or load, subsequent encounter; Y92.9 Unspecified place or not applicable
CPT/HCPCS: 88304; 88311; A9270-GY; J0780; J1100; J1885; J2001; J2250; J2270; J2405; J2704; J3010; J8540

== ENCOUNTER 2017-06-07 14:39 | Emergency (ER) | payer OTHER ==
--- OUTSIDE RECORDS SUMMARY | 2017-06-07 14:45 | XMS REPORT ---
:1980 External Reference #:[id number] Author Organization [facility] Address [address] [address] Phone [phone] Care Team Providers Name Role Phone Tatiana Perea MD Primary Care Physician Unavailable Payers Type Date Identification Numbers Payment Provider Subscriber Commercial Policy Number: [id number] Bruno Perry Group Name: [id number] [address] PayID: [id number] [place] [address] Problems Date Description Provider Status Onset: 01/25/2013 Myocarditis [place] [facility] Schedule Active Onset: 01/25/2013 Aortic valve disorder [place] [facility] Schedule Active Onset: 07/26/2013 Palpitations [facility] Schedule Active Onset: 07/26/2013 Chest pain [facility] Schedule Active Onset: 12/24/2013 Primary cardiomyopathy Bashir Isaac M.D. Active Onset: 12/24/2013 Essential hypertension Bashir Isaac M.D. Active Onset: 12/24/2013 Dyspnea Bashir Isaac M.D. Active Onset: 08/26/2014 Migraine with aura Cintia Frazier NP Active Family History Date Family Member(s) Problem(s) Comments General Diabetes General Cancer General Heart Disease General Hypertension General Rheumatoid Arthritis Father Diabetes Father blood clots, depression Mother Migraine Mother Brain aneurysm Social History Type Date Description Comments Lives With Boyfriend Lives With Children Occupation works at a [employer] Cigarette Use Patient is a current cigarette smoker, smokes some days ETOH Use Denies alcohol use Recreational Drug Use Denies Drug Use Smoking Patient is a current smoker, smokes some days Daily Caffeine Consumes on average 20oz of soda per day Exercise Type/Frequency Exercises regularly Allergies, Adverse Reactions, Alerts Date Description Reaction Status Severity Comments 02/06/2013 Latex active 02/06/2013 Codeine active 02/06/2013 Aspirin active 02/25/2014 Prevacid active 08/26/2014 Zantac active 02/11/2015 Penicillin active hives Medications Medication Date Status Form Strength Qnty SIG Indications Ordering Provider Gabapentin 01/18/ Active Capsules 300mg 90cap take 1-3 Aj Mathews s by yobani White, at night M.D. and 1 in the morning Colace 01/10/ Active Capsules 100mg 90cap 1 tab by Aj Mathews s yobani 2-3 Christopher, times a M.D. day as needed Metoprolol 12/30/ Active Tablets ER 25mg 30tab 1/2 tab by Bashir Gonzalez ER 2017 24HR s mouth F. every day Claire Isaac Oxycodone HCL 12/29/ Active Tablets 5mg 20tab 1 tabs by Aj Mathews s yobani White, twice M.D. daily as needed for moderate to severe pain. [place] 12/16/ Active Tablets 5-325mg 60tab 1-2 tab by Aj White, every 6 M.D. hours as needed pain Nortriptyline 08/26/ Active Capsules 25mg 60cap 2 by mouth Cintia HCL 2014 s every Gnadt, [employer] CAN night at bedtime Ondansetron HCL 12/24/ Active Tablets 4mg prn nausea Bashir Isaac M.D. Klor-Con 10 06/12/ Active Tablets ER 10Meq 180ta 2 tabs by Bashir Merritt bs mouth F. every day Claire Isaac Clonazepam 02/06/ Active Tablets 1mg 60tab 1/2-1 po Other 2012 s bid prn Ordering Provider Fluoxetine HCL 02/06/ Active Tablets 60mg 30tab 1 po qd Other 2012 s Ordering Provider Ibuprofen 02/06/ Active Tablets 200mg 100ta 1-2 q 4 Other 2012 bs hours prn Ordering Provider Ferrous Sulfate / Active Tablets 325(65Fe) 1 by mouth Unknown 0000 mg every day prn Topiramate / Active Tablets 100mg 1 by mouth G43.101 Unknown 0000 twice a day Albuterol 00/ Active Nebulizer (2.5mg/3ML 1 vial via Unknown Sulfate 0000 ) 0.083% nebulizer 4 times daily as needed Flovent HFA 00/ Active Aerosol 110mcg/Act 2 puffs Unknown 0000 twice daily Carvedilol 03/16/ Hx Tablets 3.125mg 60tab 1/2 by Bashir 2015 - s mouth F. 06/23/ twice a Poncho, 2016 day until M.D. 16 and then 1/2 daily Topiramate 02/18/ Hx Tablets 50mg 60tab 1 by mouth G43.101 Dong 2014 - s twice a Kellie, 03/16/ day 2015 Topiramate 08/26/ Hx Tablets 25mg 120ta 1 tab 346.02 Cintia 2014 Bentley bs daily x 2 AJIT Frazier 02/18/ wks, then 2014 1 tab twice daily x 2 wks, then 1 tab in Am & 2 tabs in PM x 2 wks, then 2 tabs twice daily Nortriptyline 08/26/ Hx Capsules 50mg take 1 by Cintia OROPEZA 2014 - mouth AJIT Frazier 08/26/ every 2014 night at bedtime Iron 02/25/ Hx Tablets every day Bashir 2013 - F. 02/24/ Poncho2013 M.D. Vitamin B12 02/24/ Hx Tablets 100mcg 1 by mouth Other 2013 - every day Ordering 02/10/ Provider 2014 Carvedilol 02/14/ Hx Tablets 3.125mg 180ta 1 tab Bashir 2013 Bentley mendoza twice a F. 03/16/ day. Poncho 2015 M.D. Rizatriptan 12/24/ Hx Tablets 10mg 2 po prn Bashir Benzoate 2013 - migraines F. 03/15/ [place] 2015 M.D. Nexium 07/26/ Hx Capsules DR 40mg 30cap 1 by mouth Bashir 2013 - s every day F. 11/16/ (not Poncho2016 presently M.D. taking) Carvedilol 06/12/ Hx Tablets 3.125mg 100ta 1 by mouth Bashir 2013 - bs daily F. 02/05/ until Poncho01.22.14 M.D. and then every other day until 10.21 and then discontinu e. Carvedilol 02/06/ Hx Tablets 3.125mg 90tab 2 po qam Bashir 2012 and 1 po F. 06/12/ qpm Poncho2013 M.D. Lisinopril 02/06/ Hx Tablets 2.5mg 30tab 1 po qd Bashir 2012 F. 05/07/ Poncho2013 M.D. Hydrocodone/Varinder 02/06/ Hx Tablets 5-325mg 60tab 1-2 po qid Other taminophen 2012 - prn pain Ordering 03/02/ Provider 2012 Nortriptyline 02/06/ Hx Capsules 75mg 1 po qd Other HCL 2013 - Ordering 08/26/ Provider 2014 Prilosec / Hx Tablets DR 40mg Unknown 0000 - 2013 Klor-Con M20 / Hx Tablets ER 20Meq 90tab 1 po tid Bashir - s F. 06/12/ Poncho2013 M.D. Ferrousul / Hx Tablets 325(65Fe) 60tab 1 po qd Unknown 0000 - mg s 2013 Calcium 500 +D / Hx Tablets 500-400mg- 1 by mouth Unknown 0000 - Unit twice a 2014 Iron Supplement / Hx Tablets 325(65Fe) 90tab by mouth Unknown 0000 - mg s every day 2013 Vitamin C / Hx Capsules 500mg 1 by mouth Unknown 0000 - every day 2014 Cranberry / Hx Tablets 250mg Unknown Extract 0000 - 2014 Ginkgo Biloba / Hx Capsules 60mg 1 by mouth Unknown Extract 0000 - every day 2014 Ginseng / Hx Capsules 50mg 1 by mouth Unknown 0000 - every day 2014 No Injection / Active Injection Aj 0000 Claire White Vital Signs Date Vital Result Comment 05/10/2017 Height 60 inches 5'0" Weight 105.00 lb Heart Rate 89 /min BP Systolic 118 mmHg BP Diastolic 70 mmHg Respiratory Rate 16 /min Body Temperature 97.5 F Pain Level 6 BMI (Body Mass Index) 20.5 kg/m2 03/25/2017 Height 60 inches 5'0" Weight 105.00 lb Heart Rate 94 /min BP Systolic 112 mmHg BP Diastolic 60 mmHg Body Temperature 97.9 F Pain Level 5 BMI (Body Mass Index) 20.5 kg/m2 02/11/2017 Height 60 inches 5'0" Weight 105.00 lb Heart Rate 88 /min Respiratory Rate 16 /min Body Temperature 98.4 F Pain Level 7 BMI (Body Mass Index) 20.5 kg/m2 02/08/2017 Height 60 inches 5'0" Weight 105.00 lb BP Systolic 130 mmHg BP Diastolic 86 mmHg Respiratory Rate 18 /min Pain Level 9 BMI (Body Mass Index) 20.5 kg/m2 01/19/2017 Height 60 inches 5'0" Weight 105.00 lb Heart Rate 74 /min BP Systolic 110 mmHg BP Diastolic 68 mmHg Body Temperature 98.6 F Pain Level 7 BMI (Body Mass Index) 20.5 kg/m2 12/24/2016 Height 60 inches 5'0" Weight 105.00 lb BP Systolic 128 mmHg BP Diastolic 76 mmHg Respiratory Rate 18 /min Body Temperature 97.7 F Pain Level 7 BMI (Body Mass Index) 20.5 kg/m2 12/17/2016 Height 60 inches 5'0" Weight 101.00 lb w/ boot Heart Rate 84 /min reg BP Systolic Sitting 114 mmHg Lue, reg cuff BP Diastolic Sitting 64 mmHg Lue, reg cuff Respiratory Rate 16 /min BMI (Body Mass Index) 19.7 kg/m2 Ejection Fraction 50-55% as of 04/22/16 echo 12/09/2016 Height 60 inches 5'0" Weight 105.00 lb BP Systolic 128 mmHg BP Diastolic 76 mmHg Respiratory Rate 20 /min Body Temperature 98.1 F Pain Level 8 BMI (Body Mass Index) 20.5 kg/m2 06/24/2016 Height 60 inches 5'0" Weight 105.75 lb with boots Heart Rate 88 /min BP Systolic Sitting 124 mmHg LA reg cuff BP Diastolic Sitting 70 mmHg LA reg cuff BMI (Body Mass Index) 20.7 kg/m2 Ejection Fraction 50% - 55% echo 04/22/16 04/16/2016 Height 60 inches 5'0" Weight 109.00 lb with shoes Heart Rate 86 /min BP Systolic Sitting 120 mmHg LA reg cuff BP Diastolic Sitting 78 mmHg LA reg cuff BMI (Body Mass Index) 21.3 kg/m2 Ejection Fraction 50%-55% echo 02/28/15 03/16/2016 Height 60 inches 5'0" Weight 107.75 lb with shoes Heart Rate 66 /min BP Systolic Sitting 136 mmHg LA reg cuff BP Diastolic Sitting 76 mmHg LA reg cuff BMI (Body Mass Index) 21.0 kg/m2 Ejection Fraction 50% - 55% echo 02/29/12 02/11/2015 Height 60 inches 5'0" Weight 117.50 lb w/ shoes Heart Rate 80 /min BP Systolic Sitting 126 mmHg LA, reg BP Diastolic Sitting 88 mmHg LA, reg BMI (Body Mass Index) 22.9 kg/m2 Ejection Fraction 50-55% 12/21/13 ECHO 08/26/2014 Height 60 inches 5'0" Weight 122.00 lb Heart Rate 72 /min BP Systolic Sitting 126 mmHg BP Diastolic Sitting 74 mmHg Respiratory Rate 16 /min BMI (Body Mass Index) 23.8 kg/m2 06/25/2014 Height 60 inches 5'0" Weight 124.00 lb Heart Rate 80 /min BP Systolic 108 mmHg LA reg BP Diastolic 82 mmHg LA reg BMI (Body Mass Index) 24.2 kg/m2 02/25/2014 Height 60 inches 5'0" Weight 120.50 lb Heart Rate 92 /min BP Systolic 102 mmHg LA reg BP Diastolic 72 mmHg LA reg BMI (Body Mass Index) 23.5 kg/m2 02/05/2014 Height 60 inches 5'0" Weight 116.75 lb Heart Rate 104 /min BP Systolic Sitting 124 mmHg LA reg cuff BP Diastolic Sitting 70 mmHg LA reg cuff Respiratory Rate 16 /min BMI (Body Mass Index) 22.8 kg/m2 12/24/2013 Height 60 inches 5'0" Weight 114.75 lb w/shoes Heart Rate 80 /min BP Systolic Sitting 108 mmHg BP Diastolic Sitting 64 mmHg Respiratory Rate 15 /min BMI (Body Mass Index) 22.4 kg/m2 06/12/2013 Heart Rate 72 /min BP Systolic Sitting 116 mmHg BP Diastolic Sitting 70 mmHg 05/07/2013 Height 60 inches 5'0" Weight 106.00 lb Heart Rate 104 /min BP Systolic Sitting 124 mmHg BP Diastolic Sitting 64 mmHg BMI (Body Mass Index) 20.7 kg/m2 03/02/2013 Height 60 inches 5'0" Weight 105.00 lb Heart Rate 85 /min BP Systolic Sitting 118 mmHg BP Diastolic Sitting 74 mmHg BMI (Body Mass Index) 20.5 kg/m2 Results Test Date Test Result H/L Range Note Laboratory test 01/10/2017 Surgical Pathology SEE RESULT BELOW 1 finding Laboratory test 05/14/2013 B Type Natriuretic 28.0 pg/mL 0-100 finding Peptide C Reactive Protein < 0.5 mg/dL Less than 0.5 TSH (Thyroid Stimulating Horm) 1.15 miu/mL 0.34-5.60 Erythrocyte Sed Rate 13 mm/Hr 0-14 CBC Auto Diff 05/14/2013 White Blood Count 7.7 10^3/uL 4.8-10.8 Red Blood Count 4.47 10^6/uL 4.0-5.4 Hemoglobin 12.4 g/dL 12.0-16.0 Hematocrit 37 % 35-47 Mean Corpuscular Volume 82 fL 80-97 Mean Corpuscular Hemoglobin 28 pg 27-31 Mean Corpuscular HGB Conc 34 g/dL 31-36 Red Cell Distribution Width 15 % 10.5-15 Platelet Count 200 10^3/uL 150-450 Mean Platelet Volume 9 um3 7.4-10.4 Abs Neutrophils 4.5 10^3/uL 1.5-7.7 Abs Lymphocytes 2.2 10^3/uL 1.0-4.8 Abs Monocytes 0.5 10^3/uL 0-0.8 Abs Eosinophils 0.4 10^3/uL 0-0.6 Abs Basophils 0.1 10^3/uL 0-0.2 Abs Nucleated RBC 0 10^3/uL Granulocyte % 58.4 % 38-83 Lymphocyte % 28.6 % 25-47 Monocyte % 6.6 % 1-9 Eosinophil % 5.5 % 0-6 Basophil % 0.9 % 0-2 Nucleated Red Blood Cells % 0.1 Electrolytes 05/14/2013 Sodium 137 mmol/L 133-145 Potassium 3.8 mmol/L 3.5-5.0 Chloride 108 mmol/L 101-111 Co2 Carbon Dioxide 24.0 mmol/L 22-32 Anion Gap 5.0 mmol/L 2-11 1 SEE RESULT BELOW Name: KELSEY PERRY : [address]: Aj White MD Acct: [id number] Unit: [id number] AGE: 36 Location: OR Re01/10/17 SEX: F Status: DEP SD SPEC: [id number] EVANS: 01/10/17- [facility] DR: Aj White MD REQ: [id number] RECD: 01/10/17 STATUS: SOUT _ ORDERED: Decal, LEVEL 3 FINAL DIAGNOSIS Bone and cartilage, left calcaneus, resection: -- Bone and cartilage with evidence of organizing fracture site. PRE-OPERATIVE DIAGNOSIS Displaced fracture of body of left calcaneus, initial. GROSS DESCRIPTION The specimen is received in formalin labeled, Fragments of Left Calcaneus, and consists of a 3.1 x 2.9 x 0.6 cm aggregate of avalos-pink irregular bone fragments. Cable Armorer sections, one cassette following decalcification. MICROSCOPIC DESCRIPTION Signed (signature on file) Zaheer Maddox MD 1623 END OF REPORT * ML=Testing performed at Main Lab DEPARTMENT OF PATHOLOGY, [address] [place] [address] Zaheer Maddox M.D. Director [facility] # [id number] Procedures Date CPT Code Description Status 01/19/2017 22794 Walking Cast Completed 01/14/2017 37496 Walking Cast Completed 01/10/2017 71348 Partial Excision Bone Talus/Calcaneus Completed 01/10/2017 60574 Partial Excision Bone Talus/Calcaneus Completed 01/03/2017 37436 ECHO Transthoracic, Real-Time 2D With Doppler And Color Completed Flow 01/03/2017 60312 ECHO Transthoracic, Real-Time 2D With Doppler And Color Completed Flow 12/30/2016 87031 Holter Monitor Review (24 hr)dr baltazaramp; ruth Completed only 12/28/2016 81231 ECG Monitor/Recording W/Visual Superimposition Scanning Completed 12/17/2016 79737 EKG Tracing & Interpretation Completed 06/24/2016 52061 EKG Tracing & Interpretation Completed 04/22/2016 25824 ECHO Transthoracic, Real-Time 2D With Doppler And Color Completed Flow 04/16/2016 51044 EKG Tracing & Interpretation Completed 04/01/2016 14492 Holter Monitor Review (24 hr)dr baltazaramp; ruth Completed only 03/31/2016 47348 ECG Monitor/Recording W/Visual Superimposition Scanning Completed 03/24/2016 79537 Holter Monitor Review (24 hr)dr deandre chan; ruth Completed only 03/24/2016 20840 ECG Monitor/Recording W/Visual Superimposition Scanning Completed 03/16/2016 31915 EKG Tracing & Interpretation Completed 04/01/2015 96779 Holter Monitor Review (24 hr)dr baltazaramp; ruth Completed only 04/01/2015 85812 ECG Monitor/Recording W/Visual Superimposition Scanning Completed 03/31/2015 93775 ECG Monitor/Recording W/Visual Superimposition Scanning Completed 03/31/2015 87197 Holter Monitor Review (24 hr)dr deandre chan; ruth Completed only 02/28/2015 73414 ECHO Transthoracic, Real-Time 2D With Doppler And Color Completed Flow 02/11/2015 22814 EKG Tracing & Interpretation Completed 06/25/2014 52725 EKG Tracing & Interpretation Completed 01/15/2014 92269 ECHO Stress Test Incl Perf Contiuous ekg Monitoring Completed W/Phys Superv 12/24/2013 22310 EKG Tracing & Interpretation Completed 12/21/2013 48381 ECHO Transthoracic, Real-Time 2D With Doppler And Color Completed Flow 09/14/2013 97173 ECHO Transthorasic Realtime 2D W Doppler & Color Completed Flow Hosp 07/26/2013 58731 ECHO Stress Test Incl Perf Contiuous ekg Monitoring Completed W/Phys Superv 07/26/2013 87843 ECHO Stress Test Incl Perf Contiuous ekg Monitoring Completed W/Phys Superv 06/12/2013 65418 EKG Tracing & Interpretation Completed 05/15/2013 58906 Holter Monitoring 24 HR New Completed 05/14/2013 53539 Holter Monitor Review (24 hr)dr carrera & ruth Completed only 05/07/2013 53661 EKG Tracing & Interpretation Completed 05/02/2013 96369 ECHO Transthoracic, Real-Time 2D With Doppler And Color Completed Flow 03/02/2013 42437 EKG Tracing & Interpretation Completed 01/25/2013 13357 ECHO Transthoracic, Real-Time 2D With Doppler And Color Completed Flow 01/10/2013 17074 EKG, Interpretation Only Completed 01/09/2013 65977 ECHO Transthorasic Realtime 2D W Doppler & Color Completed Flow Hosp 01/07/2013 86037 ECHO Transthorasic Realtime 2D W Doppler & Color Completed Flow [facility]osp 01/06/2013 00460 EKG, Interpretation Only Completed Encounters Type Date Location Provider CPT E/M Dx Office Visit 04/20/2017 2:20p [facility] [place] [address] D22.72 Office Visit 12/17/2016 1:30p [facility] RAFAELA Lopez 84665 B33.24 R00.2 R07.9 Z01.810 S92.012D Office Visit 12/09/2016 10:45a [facility] Aj White 74867 S92.025K [facility] Claire Office Visit 06/24/2016 3:00p [facility] Bashir Lofton 30369 I35.1 Claire Isaac R94.31 B33.24 R07.9 R00.2 Office Visit 04/16/2016 2:30p [facility] RAFAELA Lopez 77846 B33.24 R07.9 Office Visit 03/16/2016 1:40p [facility] Bashir Isaac M.D. 32672 J18.9 B33.24 F41.9 R00.2 I35.1 R07.9 Office Visit 02/23/2016 1:39p [facility], [place] [address] J18.9 Hospitalists J45.909 B33.24 F41.9 Office Visit 02/22/2016 1:38p [facility], [place] [address] J18.9 Hospitalists J45.909 B33.24 F41.9 Office Visit 02/21/2016 1:38p [facility], [place] [address] J18.9 Hospitalists B33.24 J45.909 F41.9 Office Visit 02/11/2015 3:10p [facility] Bashir Isaac M.D. 45751 R53.1 R07.9 R00.2 I35.1 I42.8 Office Visit 08/26/2014 11:30a [facility] [place] [address] 524.60 Services Of [facility] 346.02 346.01 Office Visit 06/25/2014 2:30p [facility] RAFAELA Lopez 93051 425.4 786.50 780.79 Office Visit 02/25/2014 1:20p [facility] Bashir Isaac 29684 786.05 M.D. 786.59 425.9 305.1 Office Visit 02/05/2014 3:00p [facility] RAFAELA Lopez 57207 425.9 786.05 786.59 785.1 305.1 Office Visit 01/15/2014 9:30a [facility] Bashir Isaac 13152 786.50 M.D. 425.9 786.05 Office Visit 12/24/2013 3:20p [facility] Bashir Isaac 86242 786.59 M.D. 425.4 401.9 786.05 785.1 425.9 Office Visit 09/15/2013 4:11p [facility], Charleen Draper M.D. 53043 481 Hospitalists 425.4 401.9 305.1 Office Visit 09/14/2013 11:55a [facility] Seven [place], [address]8211 786.2 Infectious Diseases Claire 786.52 793.19 Office Visit 09/13/2013 4:10p [facility], [place], [address] 481 Hospitalists N.P. 425.4 401.9 305.1 Office Visit 07/26/2013 3:30p [facility] Bashir Isaac M.D. 63798 785.1 786.59 425.9 Office Visit 06/12/2013 2:20p [facility] Bashir Isaac M.D. 12778 425.9 424.1 429.0 Office Visit 05/07/2013 3:00p [facility] Bashir Isaac M.D. 01948 425.9 424.1 346.10 786.59 785.1 Office Visit 03/02/2013 3:40p [facility] Bashir Isaac M.D. 49695 429.0 424.1 425.9 Office Visit 01/10/2013 11:29a [facility], Lukasz Lewis, 72566 346.10 Hospitalists Claire 429.0 079.99 Office Visit 01/10/2013 9:21a [facility] Bashir Isaac M.D. 30424 423.9 425.4 Office Visit 01/09/2013 11:29a [facility], Lukasz Lewis, 66728 429.0 Hospitalists Claire 079.99 346.10 Office Visit 01/09/2013 1:59p [facility] [place], 06109 047.9 Infectious Diseases Claire 423.9 Office Visit 01/09/2013 9:09a [facility] Bashir Isaac M.D. 73762 425.9 424.1 420.91 Office Visit 01/08/2013 11:28a [facility], Lukasz Lewis 19655 429.0 Hospitalists LeanneD. 079.99 346.10 Office Visit 01/07/2013 11:21a [facility] [place], [address] 429.0 Assoc,pc Roslainda Rangel 079.99 346.10 Office Visit 01/06/2013 11:18a [facility] Assoc,pc Jimmy JerichoThaddeus Camilo 20895 429.0 Hospitalists Claire Costa 079.99 346.10 Plan of Care Future Appointment(s):06/21/2017 11:15 am - Aj White M[facility]/19/2017 2:00 pm - Moris Rivers MD at [facility] Iskyozifwhi20/20 /2018 2:40 pm - Bashir Isaac M.D. at [facility] Wjxnzitkvs15/30/2018 - Aj White M.D.G57.82 Other specified mononeuropathies of left lower limbFollow up:6 weeks
[2017-06-07 15:09] VITALS: BP 155/92
--- NOTE | 2017-06-07 16:24 | UC ---
Eye Complaint HPI - HPI Summary HPI Summary: 36 y/o female presents to the urgent care c/o RT eye redness since last night. Pt reports symptoms started w/ itchiness on the lateral side of her RT eye, she was rubbing her eye, then she noticed a mild rash, She applied Vaseline to alleviate symptoms. This morning she woke up w/ her conjunctiva was red and w/ yellowish drainage. She put on her usual make-up,but symptoms are worsen. Pt denies fever, eye pain, photophobia, swelling, ANDREA, SOB, chest pain, abdominal pain, N/V/D - History of Current Complaint Chief Complaint: UCEye Stated Complaint: EYE IRRITATION Time Seen by Provider: 06/07/17 16:23 Hx Obtained From: Patient Hx Last Menstrual Period: May 26, 2016 ?: No Onset/Duration: Gradual Onset, Lasting Days - 1 day, Still Present Timing: Constant Severity Initially: Mild Severity Currently: Mild Pain Intensity: 0 Pain Scale Used: 0-10 Numeric Location of Injury: Conjunctiva - RT, Periorbital - mild redness Aggravating Factor(s): Other - touch Alleviating Factor(s): Other - cold compresses Associated Signs And Symptoms: Positive: Drainage (Purulent). Negative: Photophobia, Vision Impairment Bilateral, Fever, Swelling - Risk Factors Penetrating Injury Risk Factor: Negative Globe Rupture Risk Factors: Negative Acute Glaucoma Risk Factors: Negative Optic Artery Occlusion Risk Factors: Negative - Allergies/Home Medications Allergies/Adverse Reactions: Allergies Allergy/AdvReac Type Severity Reaction Status Date / Time aspirin Allergy Rash Verified 06/07/17 15:13 codeine Allergy GI Upset Verified 06/07/17 15:12 latex Allergy Itching Verified 06/07/17 15:12 Penicillins Allergy Hives Verified 06/07/17 15:10 ranitidine Allergy Hives Verified 06/07/17 15:10 Home Medications: Home Medications Gabapentin [Neurontin] 300 mg PO 06/07/17 [History] PMH/Surg Hx/FS Hx/Imm Hx Previously Healthy: Yes Cardiovascular History: Hypertension, Congestive Heart Failure Other Cardiovascular History: Cardiomyopathy, myocarditis, A-V disorder Neurological History: Migraine Other History Of: Negative For: Anticoagulant Therapy - Surgical History Surgical History: Yes Surgery Procedure, Year, and Place[place] [facility] [place] GROIN INFECTED LYMPH NODE REMOVED 2004 AND [place] [facility] [place] - Family History Known Family History: Positive: Cardiac Disease, Hypertension Negative: Diabetes - Social History Occupation: Disabled Lives: With Family Alcohol Use: None Substance Use Type: Excessive Caffeine Substance Use Comment - Amount & Last Used: 3 16 OZ PEPSI/DAY Smoking Status (MU): Light Every Day Tobacco Smoker Type: Cigarettes Amount Used/How Often: 5 CIGARETTES/DAY FOR 23 YRS Length of Time of Smoking/Using Tobacco: 23 YRS Have You Smoked in the Last Year: Yes Household Exposure Type: Cigarettes - Immunization History Most Recent Influenza Vaccination: never Most Recent Tetanus Shot: unknown Most Recent Pneumonia Vaccination: never Review of Systems Constitutional: Negative Skin: Rash - RT upper eye lid redness Eyes: Drainage - RT eye yellowish drainage, Eye Redness - mild RT conjunctiva ENT: Negative Respiratory: Negative Cardiovascular: Negative Gastrointestinal: Negative Genitourinary: Negative Motor: Negative Neurovascular: Negative Musculoskeletal: Negative Neurological: Negative Psychological: Negative Is Patient Immunocompromised?: No All Other Systems Reviewed And Are Negative: Yes Physical Exam Triage Information Reviewed: Yes Vital Signs: Initial Vital Signs Temp 98.9 F 06/07/17 15:02 Pulse 84 06/07/17 15:02 Resp 16 06/07/17 15:02 BP 155/92 06/07/17 15:02 Pulse Ox 100 06/07/17 15:02 - Additional Comments Vital Signs Reviewed: Yes General: Well appearing, well nourished female in no apparent pain distress Eyes: Positive:RT Conjunctiva w/ mild redness. Visual acuity: WNL,Visual guzman : full to confrontation.mild erythematous eruption from mid to lateral side of RT upper eye w/ signs of excoriation, no soft tissue swelling , no tender to palpation. PERRLA, EOMI intact w/out limitation or complaint of pain. eyelashes w/mild yellowish crusting , mild tearing and yellowish drainage observed. No ciliary flush. No chemosis, No photophobia. Normal fundoscopic exam; no proptosis, exophthalmos, nystagmus. Pt w/ eye make up on, and black eyeliner around orbit and eyelids ENT: Positive: Normal ENT inspection, Hearing grossly normal, Pharynx normal, Nasal congestion, Nasal drainage - clear, TMs normal - B/L external ear canal clear , TM's WNL. Negative: Tonsillar swelling, Tonsillar exudate Neck: Positive: Supple, Nontender, No Lymphadenopathy Respiratory: Positive: Chest nontender, Lungs clear, Normal breath sounds, No respiratory distress Cardiovascular: Positive: RRR, No Murmur, Pulses Normal, Brisk Capillary Refill Abdomen Description: Positive: Nontender, No Organomegaly, Soft. Negative: CVA Tenderness (R), CVA Tenderness (L) Bowel Sounds: Positive: Present Musculoskeletal: Positive: Strength Intact, ROM Intact, No Edema Neurological Exam: Normal Psychological Exam: Normal Skin Exam: Normal Eye Complaint Course/Dx - Course Course Of Treatment: 36 y/o female presents to the urgent care c/o RT eye redness since last night. Pt reports symptoms started w/ itchiness on the lateral side of her RT eye, she was rubbing her eye, then she noticed a mild rash, She applied Vaseline to alleviate symptoms. This morning she woke up w/ her conjunctiva was red and w/ yellowish drainage. She put on her usual make-up ,but symptoms are worsen. Pt denies fever, eye pain, photophobia, swelling, ANDREA, SOB, chest pain, abdominal pain, N/V/D.Hx obtained, Pt w/ RT acute bacterial conjunctivitis and contact dermatitis on lateral side of RT eye on examination. Pt Rx Erythromycin ophthalmic ointment and hydrocortisone cream to alleviate symptoms. Pt instructed how to apply medication and if symptoms do not improve , advised to f/u with PCP or Opthalmologist Thor for further evaluation and treatment.Pt's BP is elevated today advised to decrease salt in diet, monitor BP and f/u with PCP for further management. Pt understood and agreed. - Differential Dx/Diagnosis Differential Diagnosis/HQI/PQRI: Conjunctivitis, Corneal Abrasion, Keratitis, Periorbital Cellulitis, Orbital Cellulitis, Uveitis Provider Diagnoses: 1-Acute RT eye conjunctivitis. 2-contact dermatitis. 3- Uncotnrolled HTN Discharge - Discharge Plan Condition: Stable Disposition: HOME Prescriptions: Erythromycin OPTH OINT* [Erythromycin 0.5% OPTH OINT*] 1 applic RIGHT EYE TID # 1 ophth.oint Hydrocortisone 0.5% CM(NF) [Hydrocortisone 0.5% CREAM(NF)] 1 applic .SEE ORDER BID #1 applic Patient Education Materials: Contact Dermatitis (ED), Low-Sodium Diet (ED), Conjunctivitis (ED) Referrals: Gallito Mcrae MD [Medical Doctor] - 3 Days Tatiana Perea MD [Primary Care Provider] - 3 Days Additional Instructions: 1-Please apply ophthalmic ointment as instructed and finish the full course of treatment to avoid recurrent infection. 2-Please remove all your make up and wash your eyes w/ baby Lucas shampoo. apply hydrocortisone cream on affected area as directed. Avoid the eyes. 3-If you do not improve or if symptoms worsen please f/u with financial compliance officer Dr Yeboah for further evaluation and treatment 4-Your BP is elevated today. please decrease salt in your diet, monitor BP and if it continues to be elevated please f/u with your PCP for further management
== END 2017-06-07 16:55 | disposition home or self-care (01) ==
LOC: UCEAST 14:39
DX: H10.9 Unspecified conjunctivitis (principal); L25.9 Unspecified contact dermatitis, unspecified cause; I10 Essential (primary) hypertension; F17.210 Nicotine dependence, cigarettes, uncomplicated
CPT/HCPCS: 99212; G0463

== ENCOUNTER 2017-12-29 01:25 | Emergency (ER) | payer OTHER ==
--- OUTSIDE RECORDS SUMMARY | 2017-12-29 01:40 | XMS REPORT ---
:1980 External Reference #:[id number] Author Organization [facility] Address [address] [place] [address] [place] [address] Phone [phone] Care Team Providers Name Role Phone Tatiana Perea MD Primary Care Physician Unavailable Payers Type Date Identification Numbers Payment Provider Subscriber Commercial Effective: Policy Number: Bruno Perry 2017 [id number] Group Number: [id number] [address] PayID: [id number] [place] [address] Medigap Part B Effective: 2017 Policy Number: Medicaid Kelsey Perry [id number] Expires: 2017 Group Name: 1 1 [address] PayID: [id number] [place] [address] Problems Date Description Provider Status Onset: 01/25/2013 Myocarditis [facility] Schedule Active Onset: 01/25/2013 Aortic valve disorder [facility] Schedule Active Onset: 07/26/2013 Palpitations [facility] Schedule Active Onset: 07/26/2013 Chest pain [facility] Schedule Active Onset: 12/24/2013 Primary cardiomyopathy [...] History Type Date Description Comments Lives With Children Occupation Unemployed Cigarette Use Patient is a current cigarette smoker, smokes some days ETOH Use Denies alcohol use Recreational Drug Use Denies Drug Use Smoking Patient is a current smoker, smokes some days Daily Caffeine Consumes on average 20oz of soda per day Exercise Type/Frequency Exercises regularly Walking daily Allergies, Adverse Reactions, Alerts Date Description Reaction Status Severity Comments 02/06/2013 Latex active 02/06/2013 Codeine active 02/06/2013 Aspirin active 02/25/2014 Prevacid active 08/26/2014 Zantac active 02/11/2015 Penicillin active hives Medications Medication Date Status Form Strength Qnty SIG Indications Ordering Provider [place] 09/06/ Active Tablets 5-325mg 42tab 1 by mouth M54.32 Aj 2017 s every six Christopher, hours as M.D. needed for pain Gabapentin 01/18/ Active Capsules 300mg 90cap take 1-3 Aj 2016 s by mouth Christopher, at night M.D. and 1 in the morning Colace 01/10/ Active Capsules 100mg 90cap 1 tab by Aj 2016 s mouth 2-3 Christopher, times a M.D. day as needed Metoprolol 12/30/ Active Tablets ER 25mg 90tab 1/2 tab by Bashir Succinate ER 2016 24HR s mouth F. twice Mauser, every day M.D. Nortriptyline 08/26/ Active Capsules 25mg 60cap 2 by mouth Cintia HCL 2014 s every Gnadt, PHARMACOMETRICIAN night at bedtime Ondansetron HCL 12/24/ Active Tablets 4mg prn nausea Bashir Isaac M.D. Klor-Con 10 06/12/ Active Tablets ER 10Meq 180ta 2 tabs by Bashir Merritt bs mouth F. every day Claire Isaac Clonazepam 02/06/ Active Tablets 1mg 60tab 1 tab by Chad 2012 s mouth Ordering twice Provider daily Fluoxetine HCL 02/06/ Active Tablets 60mg 30tab 1 po qd Other 2012 s Ordering Provider Ibuprofen 02/06/ Active Tablets 200mg 100ta 1-2 q 4 Other 2012 bs hours prn Ordering Provider Ferrous Sulfate / Active Tablets 325(65Fe) 1 by mouth Unknown 0000 mg every day prn Topiramate 00/00/ Active Tablets 100mg 1 by mouth G43.101 Unknown 0000 twice a day Albuterol / Active Nebulizer (2.5mg/3ML 1 vial via Unknown Sulfate 0000 ) 0.083% nebulizer 4 times daily as needed Flovent HFA / Active Aerosol 110mcg/Act 2 puffs Unknown 0000 twice daily Multivitamin / Active Tablets 1 by mouth Unknown Adult 0000 every day Oxycodone HCL 12/29/ Hx Tablets 5mg 20tab 1 tabs by Aj White, 08/03/ twice M.D. 2018 daily as needed for moderate to severe pain (pt not currently taking 06/28/17) [place] 12/16/ Hx Tablets 5-325mg 60tab 1-2 tab by Aj White, 08/03/ every 6 M.D. 2018 hours as needed pain (not currently taking 06/28/17) Carvedilol 03/16/ Hx Tablets 3.125mg 60tab 1/2 by Bashir 2015 - s mouth F. 06/23/ twice a Poncho, 2016 day until M.D. 16 and then 1/2 daily Topiramate 02/18/ Hx Tablets 50mg 60tab 1 by mouth G43.101 Dong 2014 Bentley twice a Kellie, 03/16/ day 2015 Topiramate [...] 02/25/ Hx Tablets every day Bashir 2013 Bentley FThaddeus 02/24/ Poncho 2013 LeanneDThaddeus Vitamin B12 02/24/ Hx Tablets 100mcg 1 by mouth Other 2013 - every day Ordering 02/10/ Viet 2015 Carvedilol 02/14/ Hx Tablets 3.125mg 180ta 1 tab Bashir 2013 Bentley mendoza twice a FThaddeus 03/16/ day. Poncho 2015 M.D. Rizatriptan 12/24/ Hx Tablets 10mg 2 po prn Bashir Benzoate 2013 - migraines F. 03/15/ Poncho, 2015 M.D. Nexium 07/26/ Hx Capsules DR 40mg 30cap 1 by mouth Bashir 2013 - s every day F. 11/16/ (not Poncho, 2016 presently M.D. taking) Carvedilol 06/12/ Hx Tablets 3.125mg 100ta 1 by mouth Bashir 2013 - bs daily F. 02/05/ until Jimmy2013 10.14.14 M.D. and then every other day until 10.21 and then discontinu e. Carvedilol 02/06/ Hx Tablets 3.125mg 90tab 2 po qam Bashir 2012 - and 1 po F. 06/12/ qpm Poncho2013 M.D. Lisinopril 02/06/ Hx Tablets 2.5mg 30tab 1 po qd Bashir 2012 - F. 05/07/ Poncho2013 M.D. Hydrocodone/Varinder 02/06/ Hx Tablets 5-325mg 60tab 1-2 po qid Other taminophen 2012 - prn pain Ordering 03/02/ Provider 2012 Nortriptyline 02/06/ Hx Capsules 75mg 1 po qd Other HCL 2013 - Ordering 08/26/ Provider 2014 Prilosec / Hx Tablets DR 40mg Unknown - 2013 Klor-Con M20 / Hx Tablets ER 20Meq 90tab 1 po tid Bashir - s F. 06/12/ Poncho2013 M.D. Ferrousul / Hx Tablets 325(65Fe) 60tab 1 po qd Unknown 0000 - mg s 2013 Calcium 500 +D / Hx Tablets 500-400mg- 1 by mouth Unknown 0000 - Unit twice a day 2014 Iron Supplement / Hx Tablets 325(65Fe) [...] mouth Unknown 0000 - every day 2014 Medications Administered in Office Medication Date Status Form Strength Qnty SIG Indications Ordering Provider No Injection 12/10/19 Administered Injection Aj White M.D. Vital Signs Date Vital Result Comment 12/08/2017 Height 60 inches 5'0" Weight 91.00 lb Heart Rate 72 /min Respiratory Rate 15 /min Body Temperature 97.4 F Pain Level 6 BMI (Body Mass Index) 17.8 kg/m2 09/06/2017 Height 60 inches 5'0" Weight 91.00 lb Heart Rate 72 /min Respiratory Rate 17 /min Pain Level 7 BMI (Body Mass Index) 17.8 kg/m2 08/04/2017 Height 60 inches 5'0" Weight 96.00 lb BP Systolic 110 mmHg BP Diastolic 82 mmHg Respiratory Rate 16 /min Body Temperature 97.1 F Pain Level 6 BMI (Body Mass Index) 18.7 kg/m2 06/28/2017 Height 60 inches 5'0" Weight 96.12 lb w/shoes Heart Rate 100 /min BP Systolic Sitting 128 mmHg L/Arm Reg Cuff BP Diastolic Sitting 60 mmHg L/Arm Reg Cuff BP Systolic Standing 128 mmHg L/Arm Reg Cuff BP Diastolic Standing 60 mmHg L/Arm Reg Cuff BMI (Body Mass Index) 18.8 kg/m2 Ejection Fraction 50-55% Echocardiogram 01/03/2017 05/10/2017 Height 60 inches 5'0" Weight 105.00 [...] [address]: Aj White MD Acct: [id number] Unit: [id number] AGE: 36 Location: OR Re01/10/17 SEX: F Status: [facility] SPEC: [id number] EVANS: 01/10/17- SUBM DR: Aj White MD REQ: [id number] RECD: 01/10/17 STATUS: SOUT _ ORDERED: Decal, [...] cm aggregate of avalos-pink irregular bone fragments. Obiee [employer]ia [employer] Architect sections, one cassette following decalcification. MICROSCOPIC DESCRIPTION Signed (signature on file) Zaheer Maddox MD 1623 END OF REPORT * ML=Testing performed at Main Lab DEPARTMENT OF PATHOLOGY, [address] [place] [address] Zaheer Maddox M.D. Director [facility] # [id number] Procedures Date CPT Code Description Status 08/24/2017 21195 ECHO Transthoracic, Real-Time 2D With Doppler And Color Completed Flow 08/24/2017 37235 ECHO Transthoracic, Real-Time 2D With Doppler And Color Completed Flow 07/24/2017 46915 Holter Monitor Review (24 hr) review & interp only Completed 07/20/2017 84700 ECG Monitor/Recording W/Visual Superimposition Scanning Completed 06/28/2017 94726 EKG Tracing & Interpretation Completed 01/19/2017 63752 Walking Cast Completed 01/14/2017 92152 Walking Cast Completed 01/10/2017 61654 Partial Excision Bone Talus/Calcaneus Completed 01/10/2017 17972 Partial Excision Bone Talus/Calcaneus Completed 01/03/2017 72478 ECHO Transthoracic, Real-Time 2D With Doppler And Color Completed Flow 01/03/2017 31753 ECHO Transthoracic, Real-Time 2D With Doppler And Color Completed Flow 12/30/2016 14084 Holter Monitor Review (24 hr)dr review & interp only Completed 12/28/2016 42500 ECG Monitor/Recording W/Visual Superimposition Scanning Completed 12/17/2016 98000 EKG Tracing & Interpretation Completed 06/24/2016 84425 EKG Tracing & Interpretation Completed 04/22/2016 27663 ECHO Transthoracic, Real-Time 2D With Doppler And Color Completed Flow 04/16/2016 34060 EKG Tracing & Interpretation Completed 04/01/2016 07215 Holter Monitor Review (24 hr)dr review & interp only Completed 03/31/2016 22570 ECG Monitor/Recording W/Visual Superimposition Scanning Completed 03/24/2016 65161 Holter Monitor Review (24 hr)dr review & interp only Completed 03/24/2016 48607 ECG Monitor/Recording W/Visual Superimposition Scanning Completed 03/16/2016 97299 EKG Tracing & Interpretation Completed 04/01/2015 19655 ECG Monitor/Recording W/Visual Superimposition Scanning Completed 04/01/2015 42319 Holter Monitor Review (24 hr)dr review & interp only Completed 03/31/2015 69908 Holter Monitor Review (24 hr)dr review & interp only Completed 03/31/2015 79942 ECG Monitor/Recording W/Visual Superimposition Scanning Completed 02/28/2015 24623 ECHO Transthoracic, Real-Time 2D With Doppler And Color Completed Flow 02/11/2015 16173 EKG Tracing & Interpretation Completed 06/25/2014 45668 EKG Tracing & Interpretation Completed 01/15/2014 52919 ECHO Stress Test Incl Perf Contiuous ekg Monitoring Completed W/Phys Superv 12/24/2013 37326 EKG Tracing & Interpretation Completed 12/21/2013 68995 ECHO Transthoracic, Real-Time 2D With Doppler And Color Completed Flow 09/14/2013 47999 ECHO Transthorasic Realtime 2D W Doppler & Color Flow Completed Hosp 07/26/2013 02440 ECHO Stress Test Incl Perf Contiuous ekg Monitoring Completed W/Phys Superv 07/26/2013 42418 ECHO Stress Test Incl Perf Contiuous ekg Monitoring Completed W/Phys Superv 06/12/2013 95848 EKG Tracing & Interpretation Completed 05/15/2013 27823 Holter Monitoring 24 HR New Completed 05/14/2013 83524 Holter Monitor Review (24 hr)dr review & interp only Completed 05/07/2013 67794 EKG Tracing & Interpretation Completed 05/02/2013 03003 ECHO Transthoracic, Real-Time 2D With Doppler And Color Completed Flow 03/02/2013 87273 EKG Tracing & Interpretation Completed 01/25/2013 03741 ECHO Transthoracic, Real-Time 2D With Doppler And Color Completed Flow 01/10/2013 72660 EKG, Interpretation Only Completed 01/09/2013 65624 ECHO Transthorasic Realtime 2D W Doppler & Color Flow Completed Hosp 01/07/2013 97154 ECHO Transthorasic Realtime 2D W Doppler & Color Flow Completed Hosp 01/06/2013 31427 EKG, Interpretation Only Completed Encounters Type Date Location Provider CPT E/M Dx Office Visit 09/06/2017 [facility] Aj White 86167 M54.32 10:45a Of [facility] Office Visit 08/04/2017 [facility] Aj White 16625 M65.872 9:45a Of [facility] Office Visit 06/28/2017 [facility] Bashir Isaac, 69279 B33.24 2:40p Eleonora.Jennifer I35.1 R00.2 R07.9 R06.00 R03.0 Office Visit 05/10/2017 11:30a [facility] Of Aj White 35034 G57.82 [facility] Office Visit 04/20/2017 2:20p [facility] [place] [address] D22.72 Office Visit 12/17/2016 1:30p [facility] RAFAELA Lopez 72877 B33.24 R00.2 R07.9 Z01.810 S92.012D Office Visit 12/09/2016 10:45a [facility] Aj White, 33613 S92.025K Of [facility] Office Visit 06/24/2016 3:00p [facility] Bashir Lofton 43957 I35.1 Claire Isaac R94.31 B33.24 R07.9 R00.2 Office Visit 04/16/2016 2:30p [facility] RAFAELA Lopez 37494 B33.24 R07.9 Office Visit 03/16/2016 1:40p [facility] Bashir Isaac M.D. 54477 J18.9 B33.24 F41.9 R00.2 I35.1 R07.9 Office Visit 02/23/2016 1:39p [facility], [place] [address] J18.9 Hospitalists J45.909 B33.24 F41.9 Office Visit 02/22/2016 1:38p [facility], [place] [address] J18.9 Hospitalists J45.909 B33.24 F41.9 Office Visit 02/21/2016 1:38p [facility], [place] [address] J18.9 Hospitalists B33.24 J45.909 F41.9 Office Visit 02/11/2015 3:10p [facility] Bashir Isaac M.D. 95874 R53.1 R07.9 R00.2 I35.1 I42.8 Office Visit 08/26/2014 11:30a [facility] [place] [address] 524.60 Services Of [facility] 346.02 346.01 Office Visit 06/25/2014 2:30p [facility] RAFAELA Lopez 32487 425.4 786.50 780.79 Office Visit 02/25/2014 1:20p [facility] Bashir Isaac 23862 786.05 MTed 786.59 425.9 305.1 Office Visit 02/05/2014 3:00p [facility] RAFAELA Lopez 76607 425.9 786.05 786.59 785.1 305.1 Office Visit 01/15/2014 9:30a [facility] Bashir Isaac, 56903 786.50 M.DThaddeus 425.9 786.05 Office Visit 12/24/2013 3:20p [facility] Bashir Isaac, 99508 786.59 M.DThaddeus 425.4 401.9 786.05 785.1 425.9 Office Visit 09/15/2013 4:11p [facility], Charleen Draper M.D. 71580 481 Hospitalists 425.4 401.9 305.1 Office Visit 09/14/2013 11:55a [facility] Seven Camacho, 81468 786.2 Infectious Diseases M.Jennifer 786.52 793.19 Office Visit 09/13/2013 4:10p [facility], Michael Boo, 03271 481 Hospitalists N.P. 425.4 401.9 305.1 Office Visit 07/26/2013 3:30p [facility] Bashir Isaac M.D. 82972 785.1 786.59 425.9 Office Visit 06/12/2013 2:20p [facility] Bashir Isaac M.D. 46315 425.9 424.1 429.0 Office Visit 05/07/2013 3:00p [facility] Bashir Isaac M.D. 85198 425.9 424.1 346.10 786.59 785.1 Office Visit 03/02/2013 3:40p [facility] Bashir Isaac M.D. 02567 429.0 424.1 425.9 Office Visit 01/10/2013 11:29a [facility], Lukasz Lewis, 27975 346.10 Hospitalists MTed 429.0 079.99 Office Visit 01/10/2013 9:21a [facility] Bashir Isaac M.D. 97589 423.9 425.4 Office Visit 01/09/2013 11:29a [facility], Lukasz Lewis, 19245 429.0 Hospitalists MTed 079.99 346.10 Office Visit 01/09/2013 1:59p [facility] Seven Camacho, 79761 047.9 Infectious Diseases Claire 423.9 Office Visit 01/09/2013 9:09a [facility] Bashir Isaac M.D. 42261 425.9 424.1 420.91 Office Visit 01/08/2013 11:28a [facility] Lukasz Lewis, 60690 429.0 Hospitalists Claire 079.99 346.10 Office Visit 01/07/2013 11:21[place] [facility] [place] [address] 429.0 Assoc,pc Hospital[facility] Rangel 079.99 346.10 Office Visit 01/06/2013 11:18a [facility], Jimmy Camilo 26091 429.0 Hospitalists Claire Costa 079.99 346.10 Plan of Care 12/08/2017 - Aj White M.D.M65.872 Other synovitis and tenosynovitis, left ankle and footNew Xrays:CT Extremity Lower Left WoReferral:Robert Almanzar DO , Interventional Pain MedicFollow up:after testing is completed
[2017-12-29] MEDS ORDERED: Potassium Chlor TAB* 20 MEQ TAB.ER PO ONE (02:00)
[2017-12-29] MEDS ORDERED: Acetaminophen TAB* 325 MG PO ONE (02:00)
[2017-12-29] MEDS ORDERED: KCL 10 MEQ/50 ML IV ONE (02:00)
[2017-12-29] MEDS ORDERED: Potassium Chloride LIQUID* 20 MEQ PACKET ONE (02:48)
[2017-12-29] MEDS ORDERED: KCL 10 MEQ/50 ML IVPREMIX* 10 MEQ/50 ML BAG ONE (02:48)
[2017-12-29] MEDS ORDERED: Acetaminophen TAB* 325 MG ONE (02:50)
[2017-12-29 03:58] LABS: EGFR Non-African American 105.8 (>60)
[2017-12-29 04:04] LABS: ABS Basophils 0.1 10^3/ul (0-0.2); ABS Eosinophils 0.4 10^3/ul (0-0.6); ABS Lymphocytes 3.6 10^3/ul (1.0-4.8); ABS Monocytes 0.6 10^3/ul (0-0.8); ABS Neutrophils 8.6 10^3/ul (1.5-7.7); ABS Nucleated RBC 0 10^3/ul; Eosinophil % 2.7 % (0-6); Hematocrit 38 % (35-47); Hemoglobin 12.6 g/dl (12.0-16.0); Lymphocyte % 27.4 % (25-47); Mean Corpuscular HGB Conc 33 g/dl (31-36); Mean Corpuscular Hemoglobin 28 pg (27-31); Mean Corpuscular Volume 85 fL (80-97); Mean Platelet Volume 9.8 um3 (7.4-10.4); Nucleated Red Blood Cells % 0.1; Platelet Count 178 10^3/ul (150-450); Red Blood Count 4.51 10^6/ul (4.00-5.40); Red Cell Distribution Width 16 % (10.5-15); White Blood Count 13.3 10^3/ul (3.5-10.8)
[2017-12-29] MEDS ORDERED: Magnesium Sulfate 1 GM IV* 1 GM/100 ML BAG IV ONE (05:00)
--- NOTE | 2017-12-29 05:23 | ED ---
Abdominal Pain/Female - HPI Summary HPI Summary: The pt is a 37 y.o F [place] [facility] [place] with a chief complaint of an electrolyte deficiency. The duration of these symptoms were stated to be "a few weeks." Pt states she went to see her PCP who recommended her to come to the ED in order to be evaluated and Received potassium supplementation. The pt reports of diarrhea that is chronic, chest pain and chest tightness. PMHx includes CHF. Pt denies fevers, SOB and coughs. Pt has a social hx of smoking and no other drugs or alcohol. No Lasix was taken and no exposure to others who may have had diarrhea or similar symptoms. Pt has not been on antibiotics. Symptoms aggravated by nothing. Symptoms alleviated by nothing. Pertinent SHX smoker - History of Current Complaint Chief Complaint: EDGeneral Stated Complaint: GENERAL Time Seen by Provider: 12/29/17 01:57 Hx Obtained From: Patient Hx Last Menstrual Period: May 26, 2016 Onset/Duration: Lasting Weeks - "few weeks", Still Present Timing: Constant Severity Initially: Severe Severity Currently: Severe Pain Intensity: 8 Pain Scale Used: 0-10 Numeric Aggravating Factor(s): Nothing Alleviating Factor(s): Nothing Associated Signs and Symptoms: Positive: Chest Pain, Diarrhea, Other: - Chest tightness. Negative: Fever, Cough Allergies/Adverse Reactions: Allergies Allergy/AdvReac Type Severity Reaction Status Date / Time aspirin Allergy Rash Verified 12/29/17 01:31 codeine Allergy GI Upset Verified 12/29/17 01:31 latex Allergy Itching Verified 12/29/17 01:31 Penicillins Allergy Hives Verified 12/29/17 01:31 ranitidine Allergy Hives Verified 12/29/17 01:31 PMH/Surg Hx/FS Hx/Imm Hx Endocrine/Hematology History: Reports: Hx Anemia - TAKES IRON Denies: Hx Anticoagulant Therapy, Hx Diabetes, Hx Thyroid Disease, Other Endocrine/Hematological Disorders Cardiovascular History: Reports: Hx Congestive Heart Failure, Hx Hypertension - HX OF, Hx Valvular Heart Disease - AORTIC VALVE DISORDER, Other Cardiovascular Problems/Disorders - CARDIOMYOPATHY, MYOCARDITIS 4 YRS AGO Respiratory History: Reports: Hx Asthma, Hx Pneumonia, Other Respiratory Problems/Disorders - GETS PNEUMONIA YEARLY, LAST TIME 02/24 Denies: Hx Chronic Obstructive Pulmonary Disease (COPD) GI History: Reports: Hx Gastroesophageal Reflux Disease, Hx Ulcer - 2000's, Other GI Disorders - GERD History: Denies: Hx Renal Disease, Other Problems/Disorders Musculoskeletal History: Reports: Hx Back Problems, Other Musculoskeletal History - FX LEFT CALCANEOUS 02/24. Sensory History: Denies: Hx Contacts or Glasses, Hx Hearing Aid, Other Sensory Impairments Opthamlomology History: Denies: Hx Contacts or Glasses, Other Sensory Impairments Neurological History: Reports: Hx Headaches, Hx Migraine, Other Neuro Impairments/Disorders - MENINGITIS 2012 Psychiatric History: Reports: Hx Anxiety, Hx Depression Denies: Other Psychiatric Issues/Disorders - Surgical History Surgery Procedure, Year, and Place: [place] [facility] [place] [facility] [place] GROIN INFECTED LYMPH NODE REMOVED 2004 AND [place] [facility] [place] Anesthesia Reactions: No - Immunization History Date of Tetanus Vaccine: unknown to patient Date of Influenza Vaccine: None Infectious Disease History: No Infectious Disease History: Denies: Hx Clostridium Difficile, Hx Hepatitis, Hx Human Immunodeficiency Virus (HIV), Hx of Known/Suspected MRSA, Hx Shingles, Hx Tuberculosis, Hx Known/ Suspected VRE, Hx Known/Suspected VRSA, History Other Infectious Disease, Traveled Outside the [place] in Last 30 Days - Family History Known Family History: Positive: Cardiac Disease, Hypertension Negative: Diabetes - Social History Alcohol Use: None Substance Use Type: Reports: Excessive Caffeine Substance Use Comment - Amount & Last Used: 3 16 OZ PEPSI/DAY Hx Tobacco Use: Yes Smoking Status (MU): Light Every Day Tobacco Smoker Type: Cigarettes Amount Used/How Often: 5 CIGARETTES/DAY FOR 23 YRS Length of Time of Smoking/Using Tobacco: 23 YRS Have You Smoked in the Last Year: Yes Review of Systems Negative: Fever Eyes: Negative ENT: Negative Cardiovascular: Other - Chest tightness Positive: Chest Pain Negative: Shortness Of Breath, Cough Positive: Diarrhea - chronic Genitourinary: Negative Musculoskeletal: Negative Skin: Negative Neurological: Negative Psychological: Normal All Other Systems Reviewed And Are Negative: Yes Physical Exam - Summary Physical Exam Summary: Appearance: Well appearing, no pain distress Skin: warm, dry, reflects adequate perfusion Head/face: normal Eyes: EOMI, PEDRO ENT: mucous membranes moist Neck: supple, non-tender Respiratory: CTA, breath sounds present Cardiovascular: RRR, pulses symmetrical Abdomen: non-tender, soft Bowel Sounds: present Musculoskeletal: normal, strength/ROM intact, No LE extremity edema Neuro: normal, sensory motor intact, A&Ox3 Triage Information Reviewed: Yes Vital Signs On Initial Exam: Initial Vitals Temp Pulse Resp BP Pulse Ox 97.9 F 79 16 157/68 100 12/29/17 01:27 12/29/17 01:27 12/29/17 01:27 12/29/17 01:27 12/29/17 01:27 Vital Signs Reviewed: Yes Diagnostics - Vital Signs Vital Signs Temp Pulse Resp BP Pulse Ox 12/29/17 01:27 97.9 F 79 16 157/68 100 - Laboratory Lab Results: Lab Results 12/29/17 12/29/17 Range/Units 01:48 01:48 WBC 13.3 H (3.5-10.8) 10^3/ul RBC 4.51 (4.00-5.40) 10^6/ul Hgb 12.6 (12.0-16.0) g/dl Hct 38 (35-47) % MCV 85 (80-97) fL MCH 28 (27-31) pg MCHC 33 (31-36) g/dl RDW 16 H (10.5-15) % Plt Count 178 (150-450) 10^3/ul MPV 9.8 (7.4-10.4) um3 Neut % (Auto) 64.7 (38-83) % Lymph % (Auto) 27.4 (25-47) % [place] % (Auto) 4.3 (0-7) % Eos % (Auto) 2.7 (0-6) % Baso % (Auto) 0.9 (0-2) % Absolute Neuts (auto) 8.6 H (1.5-7.7) 10^3/ul Absolute Lymphs (auto) 3.6 (1.0-4.8) 10^3/ul Absolute Monos (auto) 0.6 (0-0.8) 10^3/ul Absolute Eos (auto) 0.4 (0-0.6) 10^3/ul Absolute Basos (auto) 0.1 (0-0.2) 10^3/ul Absolute Nucleated RBC 0 10^3/ul Nucleated RBC % 0.1 Sodium 140 (135-145) mmol/L Potassium 2.7 L* (3.5-5.0) mmol/L Chloride 102 (101-111) mmol/L Carbon Dioxide 30 (22-32) mmol/L Anion Gap 8 (2-11) mmol/L BUN 3 L (6-24) mg/dL Creatinine 0.63 (0.51-0.95) mg/dL Est GFR ( Amer) 128.0 (>60) Est GFR (Non-Af Amer) 105.8 (>60) BUN/Creatinine Ratio 4.8 L (8-20) Glucose 122 H (70-100) mg/dL Calcium 9.1 (8.6-10.3) mg/dL Magnesium 2.0 (1.9-2.7) mg/dL Troponin I 0.01 (<0.04) ng/mL Result Diagrams: 12/29/17 01:48 12/29/17 01:48 Lab Statement: Any lab studies that have been ordered have been reviewed, and results considered in the medical decision making process. - EKG 0214 Cardiac Rate: NL EKG Rhythm: Sinus Rhythm - 62 bpm EKG Interpretation: Normal [place], normal interval, Possible U wave Abdominal Pain Fem Course/Dx - Course Course Of Treatment: Patient with chronic diarrhea who previously was on twice daily potassium replacement had been taking off it and now has hypokalemia of 2.7. She is otherwise stable. Diarrhea has been going on for approximately 6 months. She is also had a couple months of mild chest pain. EKG is negative. She is does have a history for cardiomyopathy. Potassium, magnesium replacement IV fluids given here with improvement. Patient to follow-up with primary care physician. - Diagnoses Provider Diagnoses: Hypokalemia, Chronic diarrhea Discharge - Sign-Out/Discharge Documenting (check all that apply): Patient Departure - Discharged Home - Discharge Plan Condition: Stable Disposition: HOME Patient Education Materials: Hypokalemia (ED) Referrals: Tatiana Perea MD [Primary Care Provider] - Additional Instructions: Call your doctor first thing in the morning to schedule prompt follow-up. You will resume taking potassium as ordered by your doctor. Take a multivitamin each day containing magnesium. Return if worse, new symptoms or other concerns. Have your doctor refer you to gastroenterology to discuss her chronic diarrhea. - Billing Disposition and Condition Condition: STABLE Disposition: Home - Attestation Statements Document Initiated by Scribe: Yes Documenting Scribe: Abhinav Decker Provider For Whom Scribe is Documenting (Include Credential): Dr. Jaycob Scribe Attestation: I, Abhinav Decker, scribed for Dr. Devries on 12/29/17 at 0530. Scribe Documentation Reviewed: Yes Provider Attestation: The documentation as recorded by the scribe, Abhinav Decker accurately reflects the service I personally performed and the decisions made by me, Dr. Devries
[2017-12-29 06:12] VITALS: BP 107/67
== END 2017-12-29 06:15 | disposition home or self-care (01) ==
LOC: ED 01:25
DX: E87.6 Hypokalemia (principal); K52.9 Noninfective gastroenteritis and colitis, unspecified; I42.9 Cardiomyopathy, unspecified; I50.9 Heart failure, unspecified; F17.210 Nicotine dependence, cigarettes, uncomplicated; D64.9 Anemia, unspecified; Z79.899 Other long term (current) drug therapy; Z88.5 Allergy status to narcotic agent; Z88.6 Allergy status to analgesic agent; Z88.0 Allergy status to penicillin; Z88.8 Allergy status to other drugs, medicaments and biological substances
CPT/HCPCS: 36415; 80048; 83735; 84484; 85025; 96374; 96375; 99283; A9270-GY; J3475; J3480

== ENCOUNTER 2018-04-02 11:33 | Emergency (ER) | payer OTHER ==
[2018-04-02 12:00] VITALS: BP 134/57
--- NOTE | 2018-04-02 12:28 | UC ---
Skin Complaint HPI - HPI Summary HPI Summary: surgery on left foot---02/20/18---the incision is now open and draining purulent drainage with sloth on the would edges-no streaking no fever--- - History of Current Complaint Chief Complaint: UCSkin Time Seen by Provider: 04/02/18 12:17 Stated Complaint: WOUND CHECK Hx Obtained From: Patient Hx Last Menstrual Period: beginning of march ?: No Onset/Duration: Gradual Onset Pain Intensity: 8 Pain Scale Used: 0-10 Numeric Location: Discrete - left lateral foot Aggravating Factor(s): Nothing Alleviating Factor(s): Nothing Associated Signs & Symptoms: Positive: Negative - Allergy/Home Medications Allergies/Adverse Reactions: Allergies Allergy/AdvReac Type Severity Reaction Status Date / Time aspirin Allergy Rash Verified 04/02/18 12:01 codeine Allergy GI Upset Verified 04/02/18 12:01 latex Allergy Itching Verified 04/02/18 12:01 Penicillins Allergy Hives Verified 04/02/18 12:01 ranitidine Allergy Hives Verified 04/02/18 12:01 Home Medications: Home Medications Oxycodone HCl 5 mg PO Q4H PRN MDD 4 04/02/18 [History Confirmed 04/02/18] PMH/Surg Hx/FS Hx/Imm Hx Previously Healthy: No Cardiovascular History: Hypertension Psychological History: Anxiety Other History Of: Negative For: Anticoagulant Therapy - Surgical History Surgical History: Yes Surgery Procedure, Year, and Place: TUBAL LIGATION 2001 [facility] [place]. LEFT GROIN INFECTED LYMPH NODE REMOVED 2004 AND 2009 [facility] [place]. LEFT FOOT 2016 and 2017 [facility] [place] - Family History Known Family History: Positive: Cardiac Disease, Hypertension Negative: Diabetes - Social History Occupation: Unemployed Lives: With Family Alcohol Use: None Substance Use Type: None Substance Use Comment - Amount & Last Used: 3 16 OZ PEPSI/DAY Smoking Status (MU): Current Some Day Smoker Type: Cigarettes Amount Used/How Often: 2 CIGARETTES/DAY FOR 23 YRS Length of Time of Smoking/Using Tobacco: 23 YRS Have You Smoked in the Last Year: No Household Exposure Type: Cigarettes - Immunization History Most Recent Influenza Vaccination: never Most Recent Tetanus Shot: unknown Most Recent Pneumonia Vaccination: never Review of Systems All Other Systems Reviewed And Are Negative: Yes Constitutional: Positive: Negative Skin: Positive: Other - open surgical incision left lateral foot Eyes: Positive: Negative ENT: Positive: Negative Respiratory: Positive: Negative Cardiovascular: Positive: Negative Gastrointestinal: Positive: Negative Genitourinary: Positive: Negative Motor: Positive: Negative Neurovascular: Positive: Negative Musculoskeletal: Positive: Negative Neurological: Positive: Negative Psychological: Positive: Negative Physical Exam Triage Information Reviewed: Yes Appearance: Well-Appearing, No Pain Distress, Well-Nourished Vital Signs: Initial Vital Signs Temp 98.3 F 04/02/18 11:55 Pulse 71 04/02/18 11:55 Resp 14 04/02/18 11:55 BP 134/57 04/02/18 11:55 Pulse Ox 98 04/02/18 11:55 Vital Signs Reviewed: Yes Eye Exam: Normal Eyes: Positive: Conjunctiva Clear ENT Exam: Normal ENT: Positive: Normal ENT inspection, Hearing grossly normal. Negative: Nasal congestion, Trismus, Muffled voice, Hoarse voice Dental Exam: Normal Neck exam: Normal Neck: Positive: Supple, Nontender Respiratory Exam: Normal Respiratory: Positive: Chest non-tender, No respiratory distress, No accessory muscle use Cardiovascular Exam: Normal Cardiovascular: Positive: RRR, Pulses Normal, Brisk Capillary Refill Musculoskeletal Exam: Normal Musculoskeletal: Positive: Strength Intact, ROM Intact, No Edema Neurological Exam: Normal Neurological: Positive: Alert, Muscle Tone Normal Psychological Exam: Normal Skin: Positive: Other - open surgical incision with puruleny drainage and sloth appears to have tunneling superiorly on the incision Re-Evaluation - Re-Evaluation First Eval Change: Unchanged - meplex dressing applied after wound culture obtained Course/Dx - Course Course Of Treatment: elevate leg, leave dressing in place keflex qid follow with orthopedic MD 04/[address] Sorensen reccomendation - Diagnoses Provider Diagnosis: Surgical wound infection - Physician Notification/Consults Discussed Patient Care With: Tutu Del Cid - follow in office 04/03 Discharge - Sign-Out/Discharge Documenting (check all that apply): Patient Departure All imaging exams completed and their final reports reviewed: No Studies - Discharge Plan Condition: Stable Disposition: HOME Prescriptions: Cephalexin CAP* [Keflex CAP*] 500 mg PO QID #28 cap Patient Education Materials: Surgical Site Infections (ED) Referrals: Tutu Del Cid MD [Medical Doctor] - 1 Day (CALL AT 8AM FOR AN APPOINTMENT OFFICE IS OPEN 8A-12N APRIL 03) Additional Instructions: REST AND KEEP LEG ELEVATED - Billing Disposition and Condition Condition: STABLE Disposition: Home - Attestation Statements Provider Attestation: Per institutional requirements, I have reviewed the chart, however, I was not consulted specifically or made aware of this patient by the midlevel provider. I did not personally evaluate, interact with , or disposition this patient.
== END 2018-04-02 13:04 | disposition home or self-care (01) ==
LOC: UCEAST 11:33
DX: T81.49XA Infection following a procedure, other surgical site, initial encounter (principal); I10 Essential (primary) hypertension; F17.210 Nicotine dependence, cigarettes, uncomplicated; Z88.6 Allergy status to analgesic agent; Z88.5 Allergy status to narcotic agent; Z88.8 Allergy status to other drugs, medicaments and biological substances; Z88.0 Allergy status to penicillin; Z91.040 Latex allergy status; Y83.8 Other surgical procedures as the cause of abnormal reaction of the patient, or of later complication, without mention of misadventure at the time of the procedure
CPT/HCPCS: 87070; 87077; 87186; 87205; 87640; 87641; 99212; G0463

== ENCOUNTER 2018-04-10 06:57 | Day surgery (SDC) | payer OTHER ==
[~2018-04-10 06:57] MED LIST changes: -Dexamethasone TAB* 4 MG PO ONE; -Famotidine IV* 10 MG/ML 2 ML (20 mg) IV ONE; +Lactated Ringers 1000 ML Bag* 1,000 ML IV SCH; -Morphine INJ* 2 MG/ML 1 ML CARPUJECT IV PRN; -NS 0.9% 1000 ML* 1,000 ML IV SCH; -PROCHLORPERAZINE INJ 5 MG/ML 2 ML VIAL IV PRN; -Scopolamine 1.5 mg* PATCH TRANSDERM PRN; -fentaNYL* 50 MCG/ML 2 ML VIAL (100 MCG VIAL) IV PRN
[2018-04-10] MEDS ORDERED: Clindamycin 900 MG/D5W BAG(*) 900 MG/50 ML BAG IVPB ONE (07:21)
[2018-04-10] MEDS ORDERED: Gabapentin CAP(*) 300 MG ONE (07:58)
[2018-04-10] MEDS ORDERED: Albuterol 2.5 MG/3 ML NEB.SOL* (0.083%) INH ONE ×2 (08:55)
[2018-04-10] MEDS ORDERED: Naloxone* 0.4 MG/ML 1 ML VIAL IV PRN (08:56)
[2018-04-10] MEDS ORDERED: Ondansetron INJ* 2 MG/ML VIAL IV PRN (08:56)
[2018-04-10] MEDS ORDERED: Bupivacaine 0.5%* 50 ML VIAL ONE (08:59)
[2018-04-10] MEDS ORDERED: fentaNYL* 50 MCG/ML 2 ML VIAL (100 MCG VIAL) ONE ×2 (10:38→11:55)
[2018-04-10] MEDS ORDERED: Midazolam* 1 MG/ML 2 ML VIAL (2 MG) ONE (10:38)
[2018-04-10] MEDS ORDERED: Propofol* 10 MG/ML 20 ML BTL ONE (10:39)
[2018-04-10] MEDS ORDERED: Lidocaine 2% PF * 5 ML VIAL ONE (10:39)
[2018-04-10] MEDS: fentaNYL* 50 MCG/ML 2 ML VIAL (100 MCG VIAL) IV PRN ×2 (12:11→12:42)
[2018-04-10] MEDS ORDERED: oxyCODONE TAB* 5 MG TAB ONE (12:40)
[2018-04-10 13:25] VITALS: BP 103/59
--- NOTE | 2018-04-11 02:12 | OP ---
DATE OF OPERATION: 04/10/18 - [facility] DATE OF : 78 ATTENDING SURGEON: Aj White MD CELL INSTALLER: Laura Cotter PA-C. PRE-OP DIAGNOSIS: Infection of left calcaneocuboid fusion area with exposed hardware. 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 OPERATIVE PROCEDURE: Irrigation and debridement of left foot with hardware removal and VAC placement. DESCRIPTION OF PROCEDURE: The patient was taken to the operating room where we incised a bit longitudinally and posteriorly to allow better visualization of the lateral plate. There was fibrous debris which appeared necrotic and most likely colonized. Local cultures were sent. We debrided everything thoroughly down to the plate which was removed with a small star screwdriver. We irrigated the wound thoroughly and placed a small VAC sponge into the wound with a plaster splint applied. [id number]/[facility] #: [id number] MTDD
== END 2018-04-10 13:51 | disposition home or self-care (01) ==
LOC: OR 06:57
PROVIDERS: ATTEND Orthopaedic Surgery
DX: T84.629A Infection and inflammatory reaction due to internal fixation device of unspecified bone of leg, initial encounter (principal); T81.30XA Disruption of wound, unspecified, initial encounter; Y83.1 Surgical operation with implant of artificial internal device as the cause of abnormal reaction of the patient, or of later complication, without mention of misadventure at the time of the procedure; F17.210 Nicotine dependence, cigarettes, uncomplicated; Z79.01 Long term (current) use of anticoagulants; I08.3 Combined rheumatic disorders of mitral, aortic and tricuspid valves; I50.20 Unspecified systolic (congestive) heart failure; M19.172 Post-traumatic osteoarthritis, left ankle and foot; Z88.0 Allergy status to penicillin; Z88.8 Allergy status to other drugs, medicaments and biological substances
CPT/HCPCS: 36415; 84132; 87070; 87073; 87205; 88300; A9270-GY; J2250; J2704; J3010

== ENCOUNTER → 2018-12-18 06:56 | Day surgery (SDC) | payer OTHER ==
[~2018-12-18 06:56] MED LIST changes: -Buffered Lidocaine 0.9% SYRIN* 5 ML/SYR SYRINGE INTRADERM ONE; +Buffered Lidocaine 1% SYRIN* 1 ML/SYRINGE INTRADERM ONE; +Bupivacaine 0.5%* 50 ML MDV VIAL ONE; +Clindamycin 900 MG/D5W BAG(*) 900 MG/50 ML BAG IVPB ONE; +Dexamethasone IV* 4 MG/ML 1 ML (4 MG) IV SLOW PU ONE; +Dexamethasone IV* 4 MG/ML 1 ML (4 MG) ONE; +EPHEDrine (Pressors)* 50 MG/ML VIAL ONE; +HYDROcodone/ACETAMIN 5-325 MG* 1 TAB PO PRN; +KETAMINE HCL* 50 MG/ML 10 ML VIAL ONE; +Ketorolac INJ* 30 MG/ML 1 ML VIAL ONE; +Lidocaine 2% PF * 5 ML VIAL ONE; +Midazolam* 1 MG/ML 5 ML VIAL (5 MG) ONE; +Naloxone* 0.4 MG/ML 1 ML VIAL IV PRN; +Ondansetron INJ* 2 MG/ML VIAL ONE; +PROCHLORPERAZINE INJ 5 MG/ML 2 ML VIAL IV PRN; +PROCHLORPERAZINE INJ 5 MG/ML 2 ML VIAL ONE; +Propofol* 10 MG/ML 20 ML BTL ONE; +fentaNYL* 50 MCG/ML 2 ML VIAL (100 MCG VIAL) ONE; +fentaNYL* 50 MCG/ML 5 ML VIAL (250 MCG VIAL) ONE; +oxyCODONE/Acetamin 5/325 MG* TAB ONE
[2018-12-18] MEDS: fentaNYL* 50 MCG/ML 2 ML VIAL (100 MCG VIAL) IV PRN ×5 (11:31→12:27)
[2018-12-18] MEDS: oxyCODONE/Acetamin 5/325 MG* TAB PO PRN ×2 (12:55→13:20)
[2018-12-18 13:16] VITALS: BP 114/70
--- NOTE | 2018-12-18 19:12 | OP ---
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 POST-OP DIAGNOSIS: Nonunion left calcaneocuboid fusion, sural burial intact. OPERATIVE PROCEDURES: Revision left calcaneocuboid fusion, tibial bone graft, and exploration of sural nerve. DESCRIPTION OF PROCEDURE: The patient was taken to the operating room where longitudinal incision was made laterally just inferior to the sinus tarsi. Calcaneocuboid joint was easily identified and opened with a 15 blade and then opened with lamina solder making laborer to allow a power bur to prepare the joint for arthrodesis. Cultures were sent. Proximally, at Gerdy's tubercle with a 3 cm oblique incision, we opened up the lateral tibial cortex over Gerdy's tubercle, harvesting autograft from the proximal tibia with a curette. We then replaced the defect proximally with some allograft chips closing the periosteum with 2-0 Monocryl, subcu 3-0 Monocryl, and Steri-Strips. We then placed the autograft along the calcaneocuboid joint, compressed this with 2 olive wires and then fixed this with 3.5 mm midfoot plate off of the Arthrex 3.5 to 4.0 kit. We used a combination of locking and nonlocking screws. X-rays intraoperatively showed satisfactory fixation and position of the hardware. This wound was then irrigated thoroughly and closed with again 2-0 Monocryl sutures and nylon for the skin. Proximally, a 4 cm incision was made through the previous scar where we explored her sural nerve and buried it into the posterior compartment. We traced up the sural nerve and noted that it was still intact, buried deep into the posterolateral compartment. In another words, the stump neuroma had not exited the muscle where it was buried, so this wound was simply irrigated and closed and some nylon sutures used. A compression dressing, plaster splint was applied. [id number]/[facility] #: [id number] MTDVickie
== END | disposition home or self-care (01) ==
LOC: OR 06:56
PROVIDERS: ATTEND Orthopaedic Surgery
DX: M96.0 Pseudarthrosis after fusion or arthrodesis (principal); Z88.0 Allergy status to penicillin; I42.8 Other cardiomyopathies; I10 Essential (primary) hypertension; R00.2 Palpitations; Z87.891 Personal history of nicotine dependence; J45.909 Unspecified asthma, uncomplicated; F41.8 Other specified anxiety disorders
CPT/HCPCS: 76000; 87070; 87073; 87205; A9270-GY; C1713; C1776; C9359; J0780; J1100; J1885; J2250; J2405; J2704; J3010; J3490

== ENCOUNTER 2021-09-01 16:28 | Inpatient (IN) ==
[2021-09-01 18:00] LABS: ABS Basophils 0.1 10^3/ul (0-0.2); ABS Eosinophils 0.5 10^3/ul (0-0.6); ABS Lymphocytes 2.5 10^3/ul (1.0-4.8); ABS Monocytes 0.6 10^3/ul (0-0.8); Hematocrit 31 % (35-47); Hemoglobin 9.8 g/dL (12.0-16.0); Mean Corpuscular HGB Conc 32 g/dL (31-36); Mean Corpuscular Hemoglobin 24 pg (27-31); Mean Corpuscular Volume 75 fL (80-97); Mean Platelet Volume 8.4 fL (7.4-10.4); Platelet Count 279 10^3/uL (150-450); Red Cell Distribution Width 19 % (10-15); White Blood Count 17.7 10^3/uL (3.5-10.8)
[2021-09-01 18:51] LABS: Albumin 3.7 g/dL (3.2-5.2); Albumin/Globulin Ratio 1.5 (1-3); Calcium 8.6 mg/dL (8.6-10.3); Globulin 2.5 g/dL (2-4); Potassium 3.2 mmol/L (3.5-5.0); Total Bilirubin 0.2 mg/dL (0.2-1.0); Total Protein 6.2 g/dL (6.4-8.9); eGFR CKD-EPI 83.5 (>60)
[2021-09-01] MEDS ORDERED: cefTRIAXone 1 gm/50 mL D5W 1 GM/50 ML BAG IV ONE (19:01)
[2021-09-01] MEDS ORDERED: Azithromycin 500 mg/250 ml NS 500 MG/250 ML BAG IVPB ONE (19:01)
[2021-09-01] MEDS ORDERED: Potassium Chlor 20 meq TAB.ER PO ONE (19:01)
[2021-09-01 19:17] LABS: High Sensitivity Troponin 1 Hr 70 pg/mL (<15)
[2021-09-01] MEDS ORDERED: methylPREDNISolone SOD SUCC 40 mg/ml 1 ml VIAL IV ONE (19:49)
[2021-09-01] MEDS ORDERED: Al Hydrox/Mg Hydrox/Simet LIQ 30 ML UDC PO PRN (19:52)
[2021-09-01] MEDS ORDERED: Levalbuterol HFA INHALER MDI INH PRN (19:59)
[2021-09-01] MEDS ORDERED: Ondansetron 4 mg VIAL 2 MG/ML 2 ml VIAL IV ONE (20:31)
[2021-09-01] MEDS ORDERED: Potassium Chlor 20 meq TAB.ER PO SCH ×2 (21:00→23:30)
[2021-09-01] MEDS: Enoxaparin 40 MG/0.4 ML SYR SUBCUT SCH (21:41)
[2021-09-01 22:05] LABS: Urine Appearance Clear; Urine Bilirubin Negative (Negative); Urine Blood Negative (Negative); Urine Color Straw; Urine Glucose Negative (Negative); Urine Ketones Negative (Negative); Urine Nitrite Negative (Negative); Urine Protein Negative (Negative); Urine Specific Gravity 1.003 (1.002-1.030); Urine Urobilinogen Negative (Negative)
[2021-09-01] MEDS ORDERED: Ipratropium HFA INHALER(NF) (ALTERNATIVE = NEBS) INH ONE (22:08)
[2021-09-01] MEDS ORDERED: Magnesium Sulfate 2 gm BAG 2 GM/50 ML BAG IVPB ONE (23:08)
[2021-09-01] MEDS ORDERED: Ondansetron ODT 4 mg TAB 4 MG TAB SL PRN (23:28)
[2021-09-02 00:45] LABS: Magnesium 1.8 mg/dL (1.9-2.7)
[2021-09-02 06:22] LABS: ABS Monocytes 0.1 10^3/ul (0-0.8); ABS Neutrophils 7.6 10^3/ul (1.5-7.7); Eosinophil % 0.3 %; Hematocrit 30 % (35-47); Hemoglobin 9.7 g/dL (12.0-16.0); Lymphocyte % 11.3 %; Mean Platelet Volume 8.6 fL (7.4-10.4); Platelet Count 285 10^3/uL (150-450); Red Blood Count 4.08 10^6 /uL (3.70-4.87); White Blood Count 8.7 10^3/uL (3.5-10.8)
[2021-09-02 07:06] LABS: Calcium 8.8 mg/dL (8.6-10.3); Potassium 4.9 mmol/L (3.5-5.0); eGFR CKD-EPI 111.8 (>60)
[2021-09-02 07:09] LABS: Mean Corpuscular HGB Conc 32 g/dL (31-36); Mean Corpuscular Hemoglobin 24 pg (27-31); Mean Corpuscular Volume 74 fL (80-97); Red Cell Distribution Width 19 % (10-15)
[2021-09-02] MEDS: Levalbuterol HFA INHALER MDI INH SCH ×4 (09:36→19:56)
[2021-09-02] MEDS: Nicotine PATCH 7 MG/24 HR PATCH TRANSDERM SCH (16:24)
[2021-09-02] MEDS ORDERED: Mometasone 220 MCG MDI INH SCH (19:00)
[2021-09-02] MEDS ORDERED: cefTRIAXone 1 gm/50 mL D5W 1 GM/50 ML BAG IV SCH (19:30)
[2021-09-02] MEDS ORDERED: Azithromycin 500 mg/250 ml NS 500 MG/250 ML BAG IVPB SCH (20:00)
[2021-09-02] MEDS: Enoxaparin 40 MG/0.4 ML SYR SUBCUT SCH (20:28)
[2021-09-03 06:07] LABS: Hematocrit 31 % (35-47); Hemoglobin 9.9 g/dL (12.0-16.0); Mean Corpuscular HGB Conc 32 g/dL (31-36); Mean Corpuscular Hemoglobin 24 pg (27-31); Mean Corpuscular Volume 75 fL (80-97); Mean Platelet Volume 8.3 fL (7.4-10.4); Platelet Count 312 10^3/uL (150-450); Red Blood Count 4.17 10^6 /uL (3.70-4.87); Red Cell Distribution Width 19 % (10-15); White Blood Count 13.7 10^3/uL (3.5-10.8)
[2021-09-03 06:34] LABS: Calcium 8.7 mg/dL (8.6-10.3); Magnesium 2.2 mg/dL (1.9-2.7); Potassium 3.7 mmol/L (3.5-5.0); eGFR CKD-EPI 111.4 (>60)
[2021-09-03] MEDS: Levalbuterol HFA INHALER MDI INH SCH ×3 (07:51→15:00)
[2021-09-03] MEDS: Nicotine PATCH 7 MG/24 HR PATCH TRANSDERM SCH (09:23)
[2021-09-03 14:06] LABS: Alpha 1 Antitrypsin A1A 250 mg/dL (100 - 190)
[2021-09-03] MEDS ORDERED: Calcium Carb (TUMS) 500 mg CHEW TAB PO SCH (15:00)
[2021-09-03 15:40] VITALS: BP 121/68
[2021-09-04 12:10] LABS: Immunoglobulin A 101 mg/dL (61 - 356); Immunoglobulin G 836 mg/dL (767 - 1590); Immunoglobulin M 138 mg/dL (37 - 286)
== END 2021-09-03 16:35 | disposition home or self-care (01) | DRG 720 ==
LOC: ED 16:28 → EDHOLD 19:52 → SUATTDRO 19:52 → EDHOLD 09-02 09:21 → MED 09-02 10:22
PROVIDERS: ADMIT Internal Medicine; ATTEND Internal Medicine

== ENCOUNTER 2021-12-31 11:46 | Inpatient (IN) ==
[2021-12-31] MEDS ORDERED: Albuterol HFA INHALER 8 gm MDI INH ONE (13:24)
[2021-12-31] MEDS ORDERED: methylPREDNISolone SOD SUCC 125 mg 2 ML VIAL IV ONE (13:24)
[2021-12-31 13:47] LABS: ABS Basophils 0.1 10^3/ul (0-0.2); ABS Lymphocytes 0.5 10^3/ul (1.0-4.8); ABS Monocytes 0.3 10^3/ul (0-0.8); ABS Neutrophils 16.6 10^3/ul (1.5-7.7); Eosinophil % 0.3 %; Hematocrit 33 % (35-47); Hemoglobin 10.4 g/dL (12.0-16.0); Lymphocyte % 3.1 %; Mean Corpuscular HGB Conc 32 g/dL (31-36); Mean Corpuscular Hemoglobin 24 pg (27-31); Mean Corpuscular Volume 75 fL (80-97); Mean Platelet Volume 8.5 fL (7.4-10.4); Platelet Count 209 10^3/uL (150-450); Red Cell Distribution Width 19 % (10-15); White Blood Count 17.5 10^3/uL (3.5-10.8)
[2021-12-31 13:54] LABS: INR 1.2 (0.89-1.11)
[2021-12-31] MEDS ORDERED: cefTRIAXone 1 gm/50 mL D5W 1 GM/50 ML BAG IV ONE (14:22)
[2021-12-31] MEDS ORDERED: Azithromycin 500 mg/250 ml NS 500 MG/250 ML BAG IVPB ONE (14:22)
[2021-12-31] MEDS ORDERED: Lactated Ringers 1000 ml BAG 1,000 ML IV ONE (14:22)
[2021-12-31 14:54] LABS: HCG Pregnancy 0.67 mIU/mL
[2021-12-31 15:11] LABS: Albumin 3.6 g/dL (3.2-5.2); Albumin/Globulin Ratio 1.4 (1-3); Calcium 8.7 mg/dL (8.6-10.3); Globulin 2.6 g/dL (2-4); Potassium 3.1 mmol/L (3.5-5.0); Total Bilirubin 0.5 mg/dL (0.2-1.0); Total Protein 6.2 g/dL (6.4-8.9); eGFR CKD-EPI 115.3 (>60)
[2021-12-31 15:30] LABS: High Sensitivity Troponin 1 Hr 3 pg/mL (<15)
[2021-12-31] MEDS ORDERED: Iohexol 350 (CONTRAST) 500 ML MDV IV ONE (15:43)
[2021-12-31 17:05] LABS: Magnesium 1.9 mg/dL (1.9-2.7)
[2021-12-31] MEDS ORDERED: Levalbuterol HFA INHALER MDI INH PRN (17:23)
[2021-12-31] MEDS ORDERED: Magnesium Sulfate IV 1GM/100ML 1 GM/100 ML BAG IV ONE (17:36)
[2021-12-31] MEDS ORDERED: Lactated Ringers 1000 ml BAG 1,000 ML IV SCH (18:00)
[2021-12-31] MEDS: KCL 20 MEQ/100 ML IVPREMIX 20 MEQ/100 ML BAG IV SCH ×2 (18:19→20:28)
[2021-12-31] MEDS: Enoxaparin 40 MG/0.4 ML SYR SUBCUT SCH (18:19)
[2021-12-31 20:57] LABS: Urine Appearance Clear; Urine Bilirubin Negative (Negative); Urine Blood 1+ (Negative); Urine Color Colorless; Urine Glucose 3+(>=500 mg/dL) (Negative); Urine Ketones Negative (Negative); Urine Nitrite Negative (Negative); Urine Protein Negative (Negative); Urine Specific Gravity 1.008 (1.002-1.030); Urine Urobilinogen Negative (Negative)
[2021-12-31 21:17] LABS: Urine Bacteria Absent (Absent); Urine Red Blood Cell Absent (Absent); Urine Squamous Epithelial Cell Present (Absent); Urine White Blood Cell Absent (Absent)
[2022-01-01] MEDS ORDERED: Acetaminophen IV 1 GM/100ML 1,000 MG/100 ML BAG IV ONE (01:12)
[2022-01-01 06:26] LABS: ABS Basophils 0.1 10^3/ul (0-0.2); ABS Monocytes 0.7 10^3/ul (0-0.8); ABS Neutrophils 18.9 10^3/ul (1.5-7.7); Hematocrit 29 % (35-47); Hemoglobin 9.3 g/dL (12.0-16.0); Lymphocyte % 4.9 %; Mean Corpuscular HGB Conc 32 g/dL (31-36); Mean Corpuscular Hemoglobin 24 pg (27-31); Mean Corpuscular Volume 76 fL (80-97); Mean Platelet Volume 9.1 fL (7.4-10.4); Platelet Count 228 10^3/uL (150-450); Red Blood Count 3.88 10^6 /uL (3.70-4.87); Red Cell Distribution Width 19 % (10-15); White Blood Count 20.7 10^3/uL (3.5-10.8)
[2022-01-01 06:59] LABS: Calcium 8.7 mg/dL (8.6-10.3); Magnesium 2.1 mg/dL (1.9-2.7); Potassium 3.9 mmol/L (3.5-5.0); eGFR CKD-EPI 118.3 (>60)
[2022-01-01] MEDS ORDERED: SPIRIVA Respimat (tiotropium) 2.5 mcg/inh Inhaler INH SCH (09:00)
[2022-01-01] MEDS: Albuterol/Ipratropium NEB.SOL (2.5/0.5 MG) 3 ML NEB.SOLN INH PRN ×2 (09:35→15:33)
[2022-01-01] MEDS: DOXYcycline 100 MG in NS 0.9% 250 ml 250 ML IVPB SCH ×2 (12:11→20:48)
[2022-01-01] MEDS: cefTRIAXone 1 gm/50 mL D5W 1 GM/50 ML BAG IV SCH (17:41)
[2022-01-01] MEDS ORDERED: Azithromycin 500 mg/250 ml NS 500 MG/250 ML BAG IVPB SCH (18:00)
[2022-01-01] MEDS: Enoxaparin 40 MG/0.4 ML SYR SUBCUT SCH (19:13)
[2022-01-01] MEDS ORDERED: UBROGEPANT 100 MG PO PRN (20:03)
[2022-01-02] MEDS: Albuterol/Ipratropium NEB.SOL (2.5/0.5 MG) 3 ML NEB.SOLN INH PRN (00:48)
[2022-01-02 06:35] LABS: ABS Eosinophils 0.3 10^3/ul (0-0.6); ABS Monocytes 0.9 10^3/ul (0-0.8); ABS Neutrophils 14.2 10^3/ul (1.5-7.7); Eosinophil % 1.5 %; Hematocrit 30 % (35-47); Hemoglobin 9.5 g/dL (12.0-16.0); Lymphocyte % 16.1 %; Mean Corpuscular HGB Conc 31 g/dL (31-36); Mean Corpuscular Hemoglobin 24 pg (27-31); Mean Corpuscular Volume 76 fL (80-97); Mean Platelet Volume 8.9 fL (7.4-10.4); Platelet Count 278 10^3/uL (150-450); Red Cell Distribution Width 19 % (10-15); White Blood Count 18.4 10^3/uL (3.5-10.8)
[2022-01-02 07:08] LABS: Calcium 8.6 mg/dL (8.6-10.3); Potassium 3.3 mmol/L (3.5-5.0); eGFR CKD-EPI 115.3 (>60)
[2022-01-02] MEDS ORDERED: Nicotine Lozenge mini 4 MG LOZNG.MINI MT PRN (07:51)
[2022-01-02] MEDS: DOXYcycline 100 MG in NS 0.9% 250 ml 250 ML IVPB SCH ×2 (08:37→20:58)
[2022-01-02] MEDS: Potassium Chlor 10 meq TAB PO SCH (08:41)
[2022-01-02] MEDS ORDERED: Ondansetron ODT 4 mg TAB 4 MG TAB PO PRN (09:00)
[2022-01-02] MEDS: Mometasone 220 MCG MDI INH SCH ×2 (11:00→20:08)
[2022-01-02] MEDS ORDERED: Saline NASAL SPRAY 0.65% BTL BOTH NARES PRN (12:38)
[2022-01-02 14:00] LABS: Magnesium 1.7 mg/dL (1.9-2.7)
[2022-01-02] MEDS ORDERED: Magnesium Sulfate 2 gm BAG 2 GM/50 ML BAG IVPB ONE (14:31)
[2022-01-02 17:34] LABS: Adenovirus Undetected (Undetected); Bordetella parapertussis Undetected (Undetected); Bordetella pertussis Undetected (Undetected); Chlamydophila pneumoniae Undetected (Undetected); Coronavirus 229E Undetected (Undetected); Coronavirus HKU1 Undetected (Undetected); Coronavirus NL63 Undetected (Undetected); Coronavirus OC43 Undetected (Undetected); Human Metapneumovirus Undetected (Undetected); Human Rhinovirus/Enterovirus Undetected (Undetected); Influenza A Undetected (Undetected); Influenza B Undetected (Undetected); Mycoplasmoides pneumoniae Undetected (Undetected); Parainfluenza Virus 1 Undetected (Undetected); Parainfluenza Virus 2 Undetected (Undetected); Parainfluenza Virus 3 Undetected (Undetected); Parainfluenza Virus 4 Undetected (Undetected); Respiratory Syncytial Virus Undetected (Undetected); Specimen Source NASOPHARYNGEAL SWAB
[2022-01-02] MEDS: cefTRIAXone 1 gm/50 mL D5W 1 GM/50 ML BAG IV SCH (17:44)
[2022-01-02] MEDS: Enoxaparin 40 MG/0.4 ML SYR SUBCUT SCH (17:45)
[2022-01-02] MEDS: Lidocaine PATCH 5% PATCH TRANSDERM SCH (21:51)
[2022-01-03 06:17] LABS: ABS Eosinophils 0.3 10^3/ul (0-0.6); ABS Lymphocytes 2.8 10^3/ul (1.0-4.8); ABS Monocytes 0.9 10^3/ul (0-0.8); Eosinophil % 2.3 %; Hematocrit 29 % (35-47); Lymphocyte % 20.1 %; Mean Corpuscular HGB Conc 31 g/dL (31-36); Mean Corpuscular Hemoglobin 23 pg (27-31); Mean Corpuscular Volume 75 fL (80-97); Mean Platelet Volume 8.7 fL (7.4-10.4); Nucleated Red Blood Cells % 0.1; Platelet Count 298 10^3/uL (150-450); Red Blood Count 3.86 10^6 /uL (3.70-4.87); Red Cell Distribution Width 19 % (10-15); White Blood Count 14.1 10^3/uL (3.5-10.8)
[2022-01-03 06:42] LABS: Calcium 8.2 mg/dL (8.6-10.3); Potassium 3.4 mmol/L (3.5-5.0); eGFR CKD-EPI 118.9 (>60)
[2022-01-03] MEDS: Mometasone 220 MCG MDI INH SCH ×2 (07:04→20:01)
[2022-01-03] MEDS ORDERED: Magnesium Sulfate 2 gm BAG 2 GM/50 ML BAG IVPB ONE (08:05)
[2022-01-03] MEDS: DOXYcycline 100 MG in NS 0.9% 250 ml 250 ML IVPB SCH (09:57)
[2022-01-03] MEDS: KCL 20 MEQ/100 ML IVPREMIX 20 MEQ/100 ML BAG IV SCH ×2 (10:06→13:05)
[2022-01-03] MEDS: Lidocaine PATCH 5% PATCH TRANSDERM SCH (10:11)
[2022-01-03] MEDS: Potassium Chlor 10 meq TAB PO SCH (10:19)
[2022-01-03] MEDS ORDERED: Magnesium Hydroxide LIQ 30 ML UDC PO PRN (13:35)
[2022-01-03] MEDS ORDERED: Senna TAB 8.6 mg TAB PO PRN (13:35)
[2022-01-03] MEDS: cefTRIAXone 1 gm/50 mL D5W 1 GM/50 ML BAG IV SCH (16:00)
[2022-01-03] MEDS: Albuterol/Ipratropium NEB.SOL (2.5/0.5 MG) 3 ML NEB.SOLN INH PRN (16:11)
[2022-01-03] MEDS: Enoxaparin 40 MG/0.4 ML SYR SUBCUT SCH (18:00)
[2022-01-03] MEDS: Magnesium Hydroxide LIQ 30 ML UDC PO SCH (22:18)
[2022-01-04 06:42] LABS: ABS Eosinophils 0.4 10^3/ul (0-0.6); ABS Lymphocytes 2.8 10^3/ul (1.0-4.8); ABS Monocytes 0.6 10^3/ul (0-0.8); ABS Neutrophils 9.2 10^3/ul (1.5-7.7); Eosinophil % 2.8 %; Hematocrit 28 % (35-47); Hemoglobin 8.8 g/dL (12.0-16.0); Lymphocyte % 21.3 %; Mean Corpuscular HGB Conc 32 g/dL (31-36); Mean Corpuscular Hemoglobin 24 pg (27-31); Mean Corpuscular Volume 76 fL (80-97); Mean Platelet Volume 8.7 fL (7.4-10.4); Platelet Count 305 10^3/uL (150-450); Red Blood Count 3.65 10^6 /uL (3.70-4.87); Red Cell Distribution Width 19 % (10-15); White Blood Count 12.9 10^3/uL (3.5-10.8)
[2022-01-04 07:08] LABS: Calcium 8.2 mg/dL (8.6-10.3); Potassium 3.9 mmol/L (3.5-5.0); eGFR CKD-EPI 114.9 (>60)
[2022-01-04] MEDS: Mometasone 220 MCG MDI INH SCH ×2 (07:31→19:09)
[2022-01-04 08:48] LABS: Magnesium 2.1 mg/dL (1.9-2.7)
[2022-01-04 09:23] LABS: Urine Appearance Cloudy; Urine Bacteria 1+ (Absent); Urine Bilirubin Negative (Negative); Urine Blood 3+ (Negative); Urine Glucose Negative (Negative); Urine Ketones Negative (Negative); Urine Nitrite Negative (Negative); Urine Protein Negative (Negative); Urine Red Blood Cell 3+(>10/hpf) (Absent); Urine Specific Gravity 1.008 (1.002-1.030); Urine Squamous Epithelial Cell Present (Absent); Urine Urobilinogen Negative (Negative); Urine White Blood Cell 1+(6-10/hpf) (Absent)
[2022-01-04] MEDS: Potassium Chlor 10 meq TAB PO SCH (09:26)
[2022-01-04] MEDS: Lidocaine PATCH 5% PATCH TRANSDERM SCH (09:27)
[2022-01-04] MEDS: Magnesium Hydroxide LIQ 30 ML UDC PO SCH ×2 (09:27→20:36)
[2022-01-04] MEDS: cefTRIAXone 1 gm/50 mL D5W 1 GM/50 ML BAG IV SCH (15:53)
[2022-01-04] MEDS: Enoxaparin 40 MG/0.4 ML SYR SUBCUT SCH (17:58)
[2022-01-04] MEDS: Albuterol/Ipratropium NEB.SOL (2.5/0.5 MG) 3 ML NEB.SOLN INH PRN (19:09)
[2022-01-05] MEDS: Albuterol/Ipratropium NEB.SOL (2.5/0.5 MG) 3 ML NEB.SOLN INH PRN (03:35)
[2022-01-05 06:12] LABS: ABS Basophils 0.1 10^3/ul (0-0.2); ABS Eosinophils 0.6 10^3/ul (0-0.6); ABS Monocytes 0.6 10^3/ul (0-0.8); ABS Neutrophils 11.1 10^3/ul (1.5-7.7); Eosinophil % 3.6 %; Hematocrit 28 % (35-47); Hemoglobin 8.7 g/dL (12.0-16.0); Lymphocyte % 19.4 %; Mean Corpuscular HGB Conc 31 g/dL (31-36); Mean Corpuscular Hemoglobin 24 pg (27-31); Mean Corpuscular Volume 76 fL (80-97); Mean Platelet Volume 8.2 fL (7.4-10.4); Nucleated Red Blood Cells % 0.1; Platelet Count 324 10^3/uL (150-450); Red Blood Count 3.72 10^6 /uL (3.70-4.87); Red Cell Distribution Width 19 % (10-15); White Blood Count 15.3 10^3/uL (3.5-10.8)
[2022-01-05 06:30] LABS: Calcium 8.3 mg/dL (8.6-10.3); Magnesium 1.9 mg/dL (1.9-2.7); Phosphorus 3.8 mg/dL (2.5-5.0); Potassium 3.5 mmol/L (3.5-5.0); eGFR CKD-EPI 116.8 (>60)
[2022-01-05] MEDS: Mometasone 220 MCG MDI INH SCH (07:21)
[2022-01-05] MEDS: Potassium Chlor 10 meq TAB PO SCH (09:15)
[2022-01-05] MEDS: Lidocaine PATCH 5% PATCH TRANSDERM SCH (09:18)
[2022-01-05] MEDS: Magnesium Hydroxide LIQ 30 ML UDC PO SCH (09:19)
[2022-01-05 12:07] VITALS: BP 134/64
== END 2022-01-05 16:13 | disposition home or self-care (01) | DRG 142 ==
LOC: EDHOLD 11:46 → ED 11:46 → MEDTELE 23:32 → SUATTDRO 01-03 10:09
PROVIDERS: ADMIT Internal Medicine; ATTEND Hospitalist

== ENCOUNTER 2022-01-20 16:47 | Inpatient (IN) ==
[2022-01-20 17:26] LABS: ABS Basophils 0.1 10^3/ul (0-0.2); ABS Eosinophils 0.1 10^3/ul (0-0.6); ABS Lymphocytes 0.5 10^3/ul (1.0-4.8); ABS Monocytes 0.1 10^3/ul (0-0.8); ABS Neutrophils 15.4 10^3/ul (1.5-7.7); Eosinophil % 0.5 %; Hematocrit 35 % (35-47); Hemoglobin 10.6 g/dL (12.0-16.0); Lymphocyte % 2.8 %; Mean Corpuscular HGB Conc 30 g/dL (31-36); Mean Corpuscular Hemoglobin 23 pg (27-31); Mean Corpuscular Volume 75 fL (80-97); Mean Platelet Volume 8.3 fL (7.4-10.4); Platelet Count 359 10^3/uL (150-450); Red Blood Count 4.69 10^6 /uL (3.70-4.87); Red Cell Distribution Width 19 % (10-15); White Blood Count 16.1 10^3/uL (3.5-10.8)
[2022-01-20 18:08] LABS: Albumin 3.5 g/dL (3.2-5.2); Calcium 8.5 mg/dL (8.6-10.3); Potassium 3.7 mmol/L (3.5-5.0); Total Bilirubin 0.4 mg/dL (0.2-1.0)
[2022-01-20 18:13] LABS: Albumin/Globulin Ratio 1.3 (1-3); Globulin 2.8 g/dL (2-4); Total Protein 6.3 g/dL (6.4-8.9); eGFR CKD-EPI 79.7 (>60)
[2022-01-20] MEDS ORDERED: methylPREDNISolone SOD SUCC 125 mg 2 ML VIAL IV ONE (19:18)
[2022-01-20] MEDS ORDERED: Levalbuterol HFA INHALER MDI INH PRN (21:23)
[2022-01-20] MEDS ORDERED: UBROGEPANT 100 MG PO PRN (21:23)
[2022-01-20 22:11] LABS: C Reactive Protein 63.82 mg/L (<8.01)
[2022-01-20] MEDS: Enoxaparin 40 MG/0.4 ML SYR SUBCUT SCH (22:29)
[2022-01-20] MEDS: Mometasone 220 MCG MDI INH SCH (22:55)
[2022-01-20] MEDS ORDERED: SPIRIVA Respimat (tiotropium) 2.5 mcg/inh Inhaler INH SCH (23:00)
[2022-01-20] MEDS ORDERED: Furosemide 20 mg/2 ml IV VIAL IV ONE (23:40)
[2022-01-21 00:08] LABS: PCO2 Arterial 48 mmHg (35-45); PO2 Arterial 79 mmHg (80-100)
[2022-01-21] MEDS ORDERED: Albuterol/Ipratropium NEB.SOL (2.5/0.5 MG) 3 ML NEB.SOLN INH SCH ×3 (03:01→07:00)
[2022-01-21] MEDS ORDERED: Furosemide 20 mg/2 ml IV VIAL IV ONE (03:01)
[2022-01-21 06:23] LABS: ABS Lymphocytes 0.7 10^3/ul (1.0-4.8); ABS Monocytes 0.1 10^3/ul (0-0.8); ABS Neutrophils 11.6 10^3/ul (1.5-7.7); Hematocrit 36 % (35-47); Hemoglobin 10.9 g/dL (12.0-16.0); Lymphocyte % 5.4 %; Mean Corpuscular HGB Conc 31 g/dL (31-36); Mean Corpuscular Hemoglobin 23 pg (27-31); Mean Corpuscular Volume 75 fL (80-97); Mean Platelet Volume 8.3 fL (7.4-10.4); Nucleated Red Blood Cells % 0.1; Platelet Count 336 10^3/uL (150-450); Red Blood Count 4.78 10^6 /uL (3.70-4.87); Red Cell Distribution Width 19 % (10-15); White Blood Count 12.5 10^3/uL (3.5-10.8)
[2022-01-21 06:42] LABS: Albumin 3.7 g/dL (3.2-5.2); Albumin/Globulin Ratio 1.3 (1-3); Calcium 8.9 mg/dL (8.6-10.3); Globulin 2.9 g/dL (2-4); Potassium 3.6 mmol/L (3.5-5.0); Total Bilirubin 0.4 mg/dL (0.2-1.0); Total Protein 6.6 g/dL (6.4-8.9); eGFR CKD-EPI 84.1 (>60)
[2022-01-21] MEDS ORDERED: Dextrose 50% Syringe 50 ml 25 GM/50 ML SYRINGE IV PUSH ONE (07:41)
[2022-01-21] MEDS ORDERED: Potassium Chlor 20 meq TAB.ER PO ONE (11:20)
[2022-01-21 14:24] LABS: Phosphorus 5.5 mg/dL (2.5-5.0)
[2022-01-21] MEDS ORDERED: Dextrose 50% Syringe 50 ml 25 GM/50 ML SYRINGE IV PUSH PRN (15:32)
[2022-01-21] MEDS ORDERED: methylPREDNISolone SOD SUCC 1,000 MG in NS 0.9% 1000 ml BAG 1,000 ML IVPB ONE (17:00)
[2022-01-21 17:51] LABS: Urine Appearance Cloudy; Urine Bilirubin Negative (Negative); Urine Blood Negative (Negative); Urine Color Yellow; Urine Glucose Negative (Negative); Urine Ketones Negative (Negative); Urine Nitrite Negative (Negative); Urine Protein Negative (Negative); Urine Specific Gravity 1.011 (1.002-1.030); Urine Urobilinogen Negative (Negative)
[2022-01-21] MEDS: Mometasone 220 MCG MDI INH SCH (19:56)
[2022-01-21] MEDS: Enoxaparin 40 MG/0.4 ML SYR SUBCUT SCH (20:54)
[2022-01-22 06:50] LABS: Calcium 8.6 mg/dL (8.6-10.3)
[2022-01-22 06:55] LABS: eGFR CKD-EPI 103.5 (>60)
[2022-01-22 07:02] LABS: Potassium 5.1 mmol/L (3.5-5.0)
[2022-01-22 07:22] LABS: Hematocrit 32 % (35-47); Hemoglobin 9.9 g/dL (12.0-16.0); Mean Corpuscular HGB Conc 31 g/dL (31-36); Mean Corpuscular Hemoglobin 23 pg (27-31); Mean Corpuscular Volume 74 fL (80-97); Mean Platelet Volume 8.2 fL (7.4-10.4); Platelet Count 305 10^3/uL (150-450); Red Blood Count 4.34 10^6 /uL (3.70-4.87); Red Cell Distribution Width 19 % (10-15); White Blood Count 13.1 10^3/uL (3.5-10.8)
[2022-01-22] MEDS ORDERED: Furosemide 40 mg/4 ml IV VIAL IV ONE (08:19)
[2022-01-22 08:55] LABS: Anisocytosis 2+; Hypochromasia 1+; Microcytosis 2+
[2022-01-22 08:56] LABS: ABS Lymphocytes 0.4 10^3/ul (1.0-4.8); ABS Monocytes 0.1 10^3/ul (0-0.8); ABS Neutrophils 12.6 10^3/ul (1.5-7.7); Lymphocyte % 3.3 %
[2022-01-22 11:23] LABS: Magnesium 2.1 mg/dL (1.9-2.7)
[2022-01-22] MEDS: methylPREDNISolone SOD SUCC 40 mg/ml 1 ml VIAL IV SCH ×2 (13:01→18:13)
[2022-01-22] MEDS ORDERED: Dextrose 50% Syringe 50 ml 25 GM/50 ML SYRINGE IV PUSH PRN (18:01)
[2022-01-22] MEDS: Mometasone 220 MCG MDI INH SCH (20:06)
[2022-01-22] MEDS: Enoxaparin 40 MG/0.4 ML SYR SUBCUT SCH (20:40)
[2022-01-22] MEDS: Albuterol/Ipratropium NEB.SOL (2.5/0.5 MG) 3 ML NEB.SOLN INH PRN (22:04)
[2022-01-23 05:29] LABS: Hematocrit 32 % (35-47); Hemoglobin 9.6 g/dL (12.0-16.0); Mean Corpuscular HGB Conc 31 g/dL (31-36); Mean Corpuscular Hemoglobin 23 pg (27-31); Mean Corpuscular Volume 74 fL (80-97); Mean Platelet Volume 8.3 fL (7.4-10.4); Platelet Count 298 10^3/uL (150-450); Red Blood Count 4.28 10^6 /uL (3.70-4.87); Red Cell Distribution Width 19 % (10-15); White Blood Count 23.2 10^3/uL (3.5-10.8)
[2022-01-23 06:18] LABS: Calcium 8.9 mg/dL (8.6-10.3); Potassium 4.3 mmol/L (3.5-5.0)
[2022-01-23] MEDS: methylPREDNISolone SOD SUCC 40 mg/ml 1 ml VIAL IV SCH ×3 (06:18→18:29)
[2022-01-23 06:24] LABS: eGFR CKD-EPI 111.4 (>60)
[2022-01-23 06:39] LABS: Basophilic Stippling 1+; Polychromasia 1+; RBC Morphology Normal (Normal)
[2022-01-23 06:40] LABS: Stomatocytes 1+; Target Cells 1+
[2022-01-23 06:41] LABS: ABS Basophils 0.1 10^3/ul (0-0.2); ABS Lymphocytes 1.6 10^3/ul (1.0-4.8); ABS Monocytes 1.1 10^3/ul (0-0.8); ABS Neutrophils 20.4 10^3/ul (1.5-7.7); Eosinophil % 0.1 %; Lymphocyte % 6.7 %; Nucleated Red Blood Cells % 0.1
[2022-01-23] MEDS: Albuterol/Ipratropium NEB.SOL (2.5/0.5 MG) 3 ML NEB.SOLN INH PRN (08:30)
[2022-01-23] MEDS ORDERED: Furosemide 20 mg/2 ml IV VIAL IV ONE (09:13)
[2022-01-23] MEDS ORDERED: Potassium Chlor 10 meq TAB PO ONE (09:14)
[2022-01-23] MEDS: Mometasone 220 MCG MDI INH SCH (20:05)
[2022-01-23] MEDS: Enoxaparin 40 MG/0.4 ML SYR SUBCUT SCH (20:12)
[2022-01-23] MEDS: Nystatin SUSPENSION 100,000 UNITS/ML UDC PO SCH (20:14)
[2022-01-24] MEDS: methylPREDNISolone SOD SUCC 40 mg/ml 1 ml VIAL IV SCH ×3 (03:48→20:03)
[2022-01-24 05:37] LABS: ABS Basophils 0.1 10^3/ul (0-0.2); ABS Lymphocytes 0.6 10^3/ul (1.0-4.8); ABS Monocytes 0.7 10^3/ul (0-0.8); ABS Neutrophils 20.5 10^3/ul (1.5-7.7); Eosinophil % 0.1 %; Hematocrit 33 % (35-47); Hemoglobin 10.2 g/dL (12.0-16.0); Lymphocyte % 2.7 %; Mean Corpuscular HGB Conc 31 g/dL (31-36); Mean Corpuscular Hemoglobin 22 pg (27-31); Mean Corpuscular Volume 73 fL (80-97); Mean Platelet Volume 8.4 fL (7.4-10.4); Platelet Count 272 10^3/uL (150-450); Red Blood Count 4.54 10^6 /uL (3.70-4.87); Red Cell Distribution Width 19 % (10-15); White Blood Count 21.8 10^3/uL (3.5-10.8)
[2022-01-24 06:19] LABS: Calcium 8.8 mg/dL (8.6-10.3); Potassium 4.4 mmol/L (3.5-5.0); eGFR CKD-EPI 113.5 (>60)
[2022-01-24] MEDS: Nystatin SUSPENSION 100,000 UNITS/ML UDC PO SCH ×4 (09:08→20:03)
[2022-01-24] MEDS ORDERED: Furosemide 40 mg/4 ml IV VIAL IV ONE (12:50)
[2022-01-24] MEDS: Enoxaparin 40 MG/0.4 ML SYR SUBCUT SCH (20:01)
[2022-01-24] MEDS: Mometasone 220 MCG MDI INH SCH (21:17)
[2022-01-25] MEDS: methylPREDNISolone SOD SUCC 40 mg/ml 1 ml VIAL IV SCH ×3 (03:21→18:06)
[2022-01-25 04:53] LABS: ABS Basophils 0.1 10^3/ul (0-0.2); ABS Lymphocytes 0.7 10^3/ul (1.0-4.8); ABS Monocytes 0.5 10^3/ul (0-0.8); Eosinophil % 0.1 %; Hematocrit 33 % (35-47); Hemoglobin 10.1 g/dL (12.0-16.0); Lymphocyte % 3.8 %; Mean Corpuscular HGB Conc 31 g/dL (31-36); Mean Corpuscular Hemoglobin 22 pg (27-31); Mean Corpuscular Volume 73 fL (80-97); Mean Platelet Volume 8.7 fL (7.4-10.4); Platelet Count 266 10^3/uL (150-450); Red Cell Distribution Width 19 % (10-15); White Blood Count 18.3 10^3/uL (3.5-10.8)
[2022-01-25 05:15] LABS: Calcium 8.6 mg/dL (8.6-10.3); Potassium 4.4 mmol/L (3.5-5.0); eGFR CKD-EPI 111.1 (>60)
[2022-01-25] MEDS: Nystatin SUSPENSION 100,000 UNITS/ML UDC PO SCH ×4 (08:18→21:27)
[2022-01-25 15:29] LABS: Fungitell Qualitative Result Negative (Negative); Fungitell Quantitative Value <31 pg/mL (<60 pg/mL)
[2022-01-25] MEDS: Mometasone 220 MCG MDI INH SCH (19:30)
[2022-01-25] MEDS: Enoxaparin 40 MG/0.4 ML SYR SUBCUT SCH (21:28)
[2022-01-25] MEDS: TRIMETH IVPB SCH (22:14)
[2022-01-25] MEDS: D5W IVPB SCH (22:14)
[2022-01-25] MEDS: methylPREDNISolone SOD SUCC 1,000 MG in NS 0.9% 250 ml 250 ML IVPB SCH (22:14)
[2022-01-25] MEDS: SULFAMETHOXAZOLE IVPB SCH (22:14)
[2022-01-26] MEDS: Ondansetron ODT 4 mg TAB 4 MG TAB PO PRN ×2 (01:25→09:22)
[2022-01-26] MEDS: SULFAMETHOXAZOLE IVPB SCH ×3 (04:19→20:34)
[2022-01-26] MEDS: D5W IVPB SCH ×3 (04:19→20:34)
[2022-01-26] MEDS: TRIMETH IVPB SCH ×3 (04:19→20:34)
[2022-01-26 06:36] LABS: ABS Lymphocytes 0.3 10^3/ul (1.0-4.8); ABS Monocytes 0.1 10^3/ul (0-0.8); ABS Neutrophils 14.2 10^3/ul (1.5-7.7); Hematocrit 31 % (35-47); Hemoglobin 9.5 g/dL (12.0-16.0); Mean Corpuscular HGB Conc 31 g/dL (31-36); Mean Corpuscular Hemoglobin 23 pg (27-31); Mean Corpuscular Volume 73 fL (80-97); Mean Platelet Volume 9.3 fL (7.4-10.4); Platelet Count 253 10^3/uL (150-450); Red Cell Distribution Width 19 % (10-15); White Blood Count 14.6 10^3/uL (3.5-10.8)
[2022-01-26 07:01] LABS: Potassium, Whole Blood 3.8 mmol/L (3.4-4.5)
[2022-01-26 07:05] LABS: CO2 Carbon Dioxide 31 mmol/L (22-32); Calcium 8.2 mg/dL (8.6-10.3); Chloride 96 mmol/L (101-111); Sodium 133 mmol/L (135-145)
[2022-01-26 07:06] LABS: Anion Gap 6 mmol/L (2-11)
[2022-01-26 07:11] LABS: Blood Urea Nitrogen 13 mg/dL (6-24); Glucose 246 mg/dL (70-100); eGFR CKD-EPI 115.3 (>60)
[2022-01-26] MEDS: Nystatin SUSPENSION 100,000 UNITS/ML UDC PO SCH ×4 (07:58→20:14)
[2022-01-26] MEDS: methylPREDNISolone SOD SUCC 1,000 MG in NS 0.9% 250 ml 250 ML IVPB SCH (08:04)
[2022-01-26] MEDS: Mometasone 220 MCG MDI INH SCH (19:54)
[2022-01-26] MEDS: Enoxaparin 40 MG/0.4 ML SYR SUBCUT SCH (20:13)
[2022-01-27] MEDS: D5W IVPB SCH ×3 (04:20→21:16)
[2022-01-27] MEDS: SULFAMETHOXAZOLE IVPB SCH ×3 (04:20→21:16)
[2022-01-27] MEDS: TRIMETH IVPB SCH ×3 (04:20→21:16)
[2022-01-27 04:33] LABS: ABS Basophils 0.1 10^3/ul (0-0.2); ABS Lymphocytes 0.6 10^3/ul (1.0-4.8); ABS Monocytes 1.2 10^3/ul (0-0.8); ABS Neutrophils 17.9 10^3/ul (1.5-7.7); Hematocrit 32 % (35-47); Hemoglobin 9.8 g/dL (12.0-16.0); Lymphocyte % 3.2 %; Mean Corpuscular HGB Conc 30 g/dL (31-36); Mean Corpuscular Hemoglobin 22 pg (27-31); Mean Corpuscular Volume 73 fL (80-97); Mean Platelet Volume 8.8 fL (7.4-10.4); Platelet Count 268 10^3/uL (150-450); Red Blood Count 4.43 10^6 /uL (3.70-4.87); Red Cell Distribution Width 19 % (10-15); White Blood Count 19.9 10^3/uL (3.5-10.8)
[2022-01-27 05:03] LABS: Calcium 8.7 mg/dL (8.6-10.3); Potassium 4.4 mmol/L (3.5-5.0); eGFR CKD-EPI 97.2 (>60)
[2022-01-27] MEDS: methylPREDNISolone SOD SUCC 1,000 MG in NS 0.9% 250 ml 250 ML IVPB SCH (07:30)
[2022-01-27] MEDS: Nystatin SUSPENSION 100,000 UNITS/ML UDC PO SCH ×4 (08:01→20:36)
[2022-01-27] MEDS ORDERED: Furosemide 40 mg/4 ml IV VIAL IV SLOW PU ONE (09:22)
[2022-01-27] MEDS: Ondansetron ODT 4 mg TAB 4 MG TAB PO PRN (10:50)
[2022-01-27] MEDS: Calcium Carb (TUMS) 500 mg CHEW TAB PO PRN (12:27)
[2022-01-27] MEDS: Mometasone 220 MCG MDI INH SCH (19:43)
[2022-01-27] MEDS: Enoxaparin 40 MG/0.4 ML SYR SUBCUT SCH (20:36)
[2022-01-28] MEDS: D5W IVPB SCH (05:13)
[2022-01-28] MEDS: SULFAMETHOXAZOLE IVPB SCH (05:13)
[2022-01-28] MEDS: TRIMETH IVPB SCH (05:13)
[2022-01-28 05:27] LABS: Hematocrit 32 % (35-47); Hemoglobin 9.9 g/dL (12.0-16.0); Mean Corpuscular HGB Conc 31 g/dL (31-36); Mean Corpuscular Hemoglobin 23 pg (27-31); Mean Corpuscular Volume 73 fL (80-97); Platelet Count 258 10^3/uL (150-450); Red Blood Count 4.35 10^6 /uL (3.70-4.87); Red Cell Distribution Width 19 % (10-15); White Blood Count 23.3 10^3/uL (3.5-10.8)
[2022-01-28 05:57] LABS: Anion Gap 5 mmol/L (2-11); Blood Urea Nitrogen 15 mg/dL (6-24); CO2 Carbon Dioxide 33 mmol/L (22-32); Calcium 8.4 mg/dL (8.6-10.3); Chloride 98 mmol/L (101-111); Glucose 84 mg/dL (70-100); Magnesium 2.2 mg/dL (1.9-2.7); Phosphorus 3.7 mg/dL (2.5-5.0); Potassium 4.6 mmol/L (3.5-5.0); Sodium 136 mmol/L (135-145); eGFR CKD-EPI 111.8 (>60)
[2022-01-28] MEDS: methylPREDNISolone SOD SUCC 1,000 MG in NS 0.9% 250 ml 250 ML IVPB SCH (08:26)
[2022-01-28 09:05] LABS: Microcytosis 2+
[2022-01-28 09:06] LABS: Anisocytosis 1+
[2022-01-28 09:08] LABS: Hypochromasia 1+; Target Cells 1+
[2022-01-28 09:09] LABS: ABS Basophils 0.1 10^3/ul (0-0.2); ABS Lymphocytes 1.2 10^3/ul (1.0-4.8); ABS Monocytes 1.6 10^3/ul (0-0.8); ABS Neutrophils 20.4 10^3/ul (1.5-7.7); Eosinophil % 0.2 %
[2022-01-28] MEDS: Ondansetron ODT 4 mg TAB 4 MG TAB PO PRN (10:22)
[2022-01-28] MEDS ORDERED: Lorazepam PYXIS KEY PRN (10:28)
[2022-01-28] MEDS: LORazepam 2 mg VIAL 1 ml IV PUSH PRN ×2 (10:57→15:09)
[2022-01-28 11:54] LABS: Creatine Kinase 61 U/L (10-223); LDH 530 U/L (140-271)
[2022-01-28 16:00] LABS: Rheumatoid Factor < 10 IU/mL (<15)
[2022-01-28] MEDS ORDERED: Acetaminophen IV 1 GM/100ML 1,000 MG/100 ML BAG IV PRN (17:53)
[2022-01-28] MEDS ORDERED: Acetaminophen IV 1 GM/100ML 1,000 MG/100 ML BAG IV ONE (17:54)
[2022-01-28] MEDS ORDERED: Immune Globulin IV Order (CPOE ENTRY PROTOCOL) IV SCH (18:00)
[2022-01-28] MEDS: Mometasone 220 MCG MDI INH SCH (19:23)
[2022-01-28] MEDS: Enoxaparin 40 MG/0.4 ML SYR SUBCUT SCH (20:36)
[2022-01-28] MEDS: Sulfamethox/Trimethoprim DS TAB 800/160 mg PO SCH (20:36)
[2022-01-28] MEDS: [UNRECOGNIZED DRUG - OTHER] IV SCH (23:37)
[2022-01-28] MEDS: PRIVIGEN IV SCH (23:37)
[2022-01-28] MEDS: IMMUNE GLOB IV SCH (23:37)
[2022-01-29] MEDS: LORazepam 2 mg VIAL 1 ml IV PUSH PRN ×2 (03:20→14:05)
[2022-01-29 06:19] LABS: ABS Lymphocytes 0.5 10^3/ul (1.0-4.8); ABS Monocytes 1.1 10^3/ul (0-0.8); Eosinophil % 0.1 %; Hematocrit 32 % (35-47); Hemoglobin 9.9 g/dL (12.0-16.0); Lymphocyte % 3.3 %; Mean Corpuscular HGB Conc 31 g/dL (31-36); Mean Corpuscular Hemoglobin 23 pg (27-31); Mean Corpuscular Volume 74 fL (80-97); Mean Platelet Volume 8.6 fL (7.4-10.4); Platelet Count 287 10^3/uL (150-450); Red Cell Distribution Width 20 % (10-15); White Blood Count 15.6 10^3/uL (3.5-10.8)
[2022-01-29 07:00] LABS: Calcium 8.4 mg/dL (8.6-10.3); Phosphorus 3.6 mg/dL (2.5-5.0); eGFR CKD-EPI 114.9 (>60)
[2022-01-29 07:01] LABS: Potassium 5.3 mmol/L (3.5-5.0)
[2022-01-29] MEDS ORDERED: Furosemide 20 mg/2 ml IV VIAL IV SLOW PU ONE (07:28)
[2022-01-29] MEDS: Sulfamethox/Trimethoprim DS TAB 800/160 mg PO SCH ×2 (07:54→21:19)
[2022-01-29] MEDS: methylPREDNISolone SOD SUCC 1,000 MG in NS 0.9% 250 ml 250 ML IVPB SCH (07:55)
[2022-01-29] MEDS: Oxymetazoline 0.05% NASAL SPR 15 ML BTL BOTH NARES SCH ×2 (09:34→21:24)
[2022-01-29] MEDS: Calcium Carb (TUMS) 500 mg CHEW TAB PO PRN (10:00)
[2022-01-29 11:45] LABS: % Iron Saturation 33 % (15-55); Iron 132 ug/dL (50-212); Total Iron Binding Capacity 402 mcg/dL (250-450); Transferrin 287 mg/dL (203-362); Unsaturated Iron Binding 270 ug/dL
[2022-01-29] MEDS ORDERED: AIMOVIG SUBCUT ONE (16:00)
[2022-01-29] MEDS: Mometasone 220 MCG MDI INH SCH (20:43)
[2022-01-29] MEDS: Enoxaparin 40 MG/0.4 ML SYR SUBCUT SCH (21:19)
[2022-01-29] MEDS: [UNRECOGNIZED DRUG - OTHER] IV SCH (23:48)
[2022-01-29] MEDS: IMMUNE GLOB IV SCH (23:48)
[2022-01-29] MEDS: PRIVIGEN IV SCH (23:48)
[2022-01-30] MEDS: Nystatin SUSPENSION 100,000 UNITS/ML UDC PO SCH ×5 (02:54→22:03)
[2022-01-30] MEDS: LORazepam 2 mg VIAL 1 ml IV PUSH PRN ×2 (05:54→16:36)
[2022-01-30 06:08] LABS: ABS Basophils 0.1 10^3/ul (0-0.2); ABS Lymphocytes 1.3 10^3/ul (1.0-4.8); ABS Monocytes 1.2 10^3/ul (0-0.8); ABS Neutrophils 18.7 10^3/ul (1.5-7.7); Hematocrit 32 % (35-47); Hemoglobin 9.9 g/dL (12.0-16.0); Lymphocyte % 5.9 %; Mean Corpuscular HGB Conc 31 g/dL (31-36); Mean Corpuscular Hemoglobin 23 pg (27-31); Mean Corpuscular Volume 74 fL (80-97); Mean Platelet Volume 8.9 fL (7.4-10.4); Nucleated Red Blood Cells % 0.1; Platelet Count 316 10^3/uL (150-450); Red Blood Count 4.37 10^6 /uL (3.70-4.87); Red Cell Distribution Width 19 % (10-15); White Blood Count 21.2 10^3/uL (3.5-10.8)
[2022-01-30 06:42] LABS: Albumin 2.9 g/dL (3.2-5.2); Albumin/Globulin Ratio 0.4 (1-3); Calcium 8.5 mg/dL (8.6-10.3); Globulin 6.9 g/dL (2-4); Magnesium 1.9 mg/dL (1.9-2.7); Phosphorus 3.3 mg/dL (2.5-5.0); Total Bilirubin 0.3 mg/dL (0.2-1.0); Total Protein 9.8 g/dL (6.4-8.9); eGFR CKD-EPI 116.8 (>60)
[2022-01-30 06:52] LABS: Potassium 5.1 mmol/L (3.5-5.0)
[2022-01-30] MEDS: Sulfamethox/Trimethoprim DS TAB 800/160 mg PO SCH ×2 (08:49→21:58)
[2022-01-30] MEDS: methylPREDNISolone SOD SUCC 1,000 MG in NS 0.9% 250 ml 250 ML IVPB SCH (08:50)
[2022-01-30] MEDS: Oxymetazoline 0.05% NASAL SPR 15 ML BTL BOTH NARES SCH ×2 (08:51→22:00)
[2022-01-30] MEDS: Acetylcysteine INHALATION SOL 200 MG/ML NEB.SOLN 10 ML INH SCH ×3 (11:00→19:30)
[2022-01-30] MEDS: Albuterol/Ipratropium NEB.SOL (2.5/0.5 MG) 3 ML NEB.SOLN INH PRN ×3 (11:00→19:29)
[2022-01-30] MEDS ORDERED: Furosemide 20 mg/2 ml IV VIAL IV SLOW PU ONE (12:11)
[2022-01-30 14:55] LABS: Hepatitis B Surface Ab Immune (Immune)
[2022-01-30 14:56] LABS: Hepatitis C Antibody Negative (Negative)
[2022-01-30] MEDS: Mometasone 220 MCG MDI INH SCH ×2 (19:05→19:38)
[2022-01-30] MEDS: Enoxaparin 40 MG/0.4 ML SYR SUBCUT SCH (22:04)
[2022-01-31] MEDS: Acetylcysteine INHALATION SOL 200 MG/ML NEB.SOLN 10 ML INH SCH ×4 (02:12→20:54)
[2022-01-31 05:23] LABS: ABS Basophils 0.1 10^3/ul (0-0.2); ABS Lymphocytes 0.7 10^3/ul (1.0-4.8); ABS Monocytes 0.7 10^3/ul (0-0.8); Eosinophil % 0.1 %; Hematocrit 32 % (35-47); Hemoglobin 9.9 g/dL (12.0-16.0); Lymphocyte % 4.9 %; Mean Corpuscular HGB Conc 31 g/dL (31-36); Mean Corpuscular Hemoglobin 23 pg (27-31); Mean Corpuscular Volume 74 fL (80-97); Mean Platelet Volume 8.6 fL (7.4-10.4); Platelet Count 310 10^3/uL (150-450); Red Cell Distribution Width 19 % (10-15); White Blood Count 14.4 10^3/uL (3.5-10.8)
[2022-01-31 05:56] LABS: Blood Urea Nitrogen 20 mg/dL (6-24); CO2 Carbon Dioxide 37 mmol/L (22-32); Calcium 8.6 mg/dL (8.6-10.3); Chloride 94 mmol/L (101-111); Glucose 104 mg/dL (70-100); Sodium 131 mmol/L (135-145); eGFR CKD-EPI 121.8 (>60)
[2022-01-31 06:00] LABS: Potassium 5.3 mmol/L (3.5-5.0)
[2022-01-31] MEDS: Sulfamethox/Trimethoprim DS TAB 800/160 mg PO SCH ×2 (07:41→19:42)
[2022-01-31] MEDS: Albuterol/Ipratropium NEB.SOL (2.5/0.5 MG) 3 ML NEB.SOLN INH PRN ×2 (07:59→20:53)
[2022-01-31] MEDS: Nystatin SUSPENSION 100,000 UNITS/ML UDC PO SCH ×4 (08:51→19:43)
[2022-01-31] MEDS: SODIUM ZIRCONIUM CYCLOSILICATE 10 GM PACKET PO SCH ×3 (08:53→23:05)
[2022-01-31] MEDS ORDERED: Furosemide 20 mg/2 ml IV VIAL IV SLOW PU ONE (09:01)
[2022-01-31] MEDS ORDERED: LORazepam 2 mg VIAL 1 ml IV PUSH ONE (11:27)
[2022-01-31] MEDS ORDERED: Lorazepam PYXIS KEY PRN (11:27)
[2022-01-31] MEDS: Calcium Carb (TUMS) 500 mg CHEW TAB PO PRN (11:46)
[2022-01-31 16:51] LABS: Calcium 8.3 mg/dL (8.6-10.3); Potassium 4.6 mmol/L (3.5-5.0); eGFR CKD-EPI 111.4 (>60)
[2022-01-31] MEDS: Enoxaparin 40 MG/0.4 ML SYR SUBCUT SCH (19:44)
[2022-01-31] MEDS: Mometasone 220 MCG MDI INH SCH (20:54)
[2022-02-01] MEDS: Albuterol/Ipratropium NEB.SOL (2.5/0.5 MG) 3 ML NEB.SOLN INH PRN ×3 (01:13→19:51)
[2022-02-01] MEDS: Acetylcysteine INHALATION SOL 200 MG/ML NEB.SOLN 10 ML INH SCH ×2 (01:13→08:43)
[2022-02-01 04:51] LABS: Hematocrit 34 % (35-47); Hemoglobin 10.7 g/dL (12.0-16.0); Mean Corpuscular HGB Conc 31 g/dL (31-36); Mean Corpuscular Hemoglobin 23 pg (27-31); Mean Corpuscular Volume 73 fL (80-97); Mean Platelet Volume 8.1 fL (7.4-10.4); Platelet Count 279 10^3/uL (150-450); Red Blood Count 4.68 10^6 /uL (3.70-4.87); Red Cell Distribution Width 19 % (10-15); White Blood Count 19.5 10^3/uL (3.5-10.8)
[2022-02-01 05:17] LABS: ABS Basophils 0.1 10^3/ul (0-0.2); ABS Eosinophils 0.2 10^3/ul (0-0.6); ABS Lymphocytes 1.8 10^3/ul (1.0-4.8); ABS Monocytes 1.1 10^3/ul (0-0.8); ABS Neutrophils 16.3 10^3/ul (1.5-7.7); Eosinophil % 0.8 %; Lymphocyte % 9.3 %
[2022-02-01 06:04] LABS: Calcium 8.5 mg/dL (8.6-10.3); Magnesium 1.9 mg/dL (1.9-2.7); Potassium 4.3 mmol/L (3.5-5.0); eGFR CKD-EPI 116.3 (>60)
[2022-02-01] MEDS: Sulfamethox/Trimethoprim DS TAB 800/160 mg PO SCH ×2 (08:41→21:11)
[2022-02-01] MEDS: Nystatin SUSPENSION 100,000 UNITS/ML UDC PO SCH ×4 (08:42→21:11)
[2022-02-01] MEDS: LORazepam 2 mg VIAL 1 ml IV PUSH PRN (08:53)
[2022-02-01] MEDS: SODIUM ZIRCONIUM CYCLOSILICATE 10 GM PACKET PO SCH (10:07)
[2022-02-01 12:35] LABS: QuantiferonTb Gold Plus Result Negative (Negative)
[2022-02-01 13:56] LABS: Cyclic Citrullinated Pept IgG <15.6 U
[2022-02-01 14:31] LABS: Sm (Smith) IgG Antibody <0.2 U
[2022-02-01 14:54] LABS: Anti SSA/RO Antibody 1.3 U; JO-1 Antibody <0.2 U; SS-B/La Antibody <0.2 U; Scleroderma Ab <0.2 U
[2022-02-01 17:17] LABS: Immunoglobulin A 119 mg/dL (61 - 356); Immunoglobulin G 615 mg/dL (767 - 1590); Immunoglobulin M 149 mg/dL (37 - 286)
[2022-02-01] MEDS: Ondansetron ODT 4 mg TAB 4 MG TAB PO PRN (17:53)
[2022-02-01] MEDS: Mometasone 220 MCG MDI INH SCH (19:51)
[2022-02-01] MEDS: Enoxaparin 40 MG/0.4 ML SYR SUBCUT SCH (21:10)
[2022-02-02 05:05] LABS: ABS Basophils 0.1 10^3/ul (0-0.2); ABS Eosinophils 0.3 10^3/ul (0-0.6); ABS Lymphocytes 2.3 10^3/ul (1.0-4.8); ABS Monocytes 0.9 10^3/ul (0-0.8); ABS Neutrophils 13.4 10^3/ul (1.5-7.7); Eosinophil % 1.9 %; Hematocrit 35 % (35-47); Hemoglobin 10.6 g/dL (12.0-16.0); Lymphocyte % 13.7 %; Mean Corpuscular HGB Conc 31 g/dL (31-36); Mean Corpuscular Hemoglobin 23 pg (27-31); Mean Corpuscular Volume 73 fL (80-97); Mean Platelet Volume 8.4 fL (7.4-10.4); Platelet Count 276 10^3/uL (150-450); Red Blood Count 4.71 10^6 /uL (3.70-4.87); Red Cell Distribution Width 19 % (10-15)
[2022-02-02 05:36] LABS: Calcium 8.7 mg/dL (8.6-10.3); Potassium 4.3 mmol/L (3.5-5.0); eGFR CKD-EPI 118.3 (>60)
[2022-02-02] MEDS: Sulfamethox/Trimethoprim DS TAB 800/160 mg PO SCH ×2 (08:59→20:45)
[2022-02-02] MEDS: Nystatin SUSPENSION 100,000 UNITS/ML UDC PO SCH ×4 (08:59→20:44)
[2022-02-02] MEDS: LORazepam 2 mg VIAL 1 ml IV PUSH PRN (09:32)
[2022-02-02 10:39] LABS: Complement C3 99 mg/dL (75 - 175)
[2022-02-02] MEDS: Mometasone 220 MCG MDI INH SCH (19:45)
[2022-02-02] MEDS: Enoxaparin 40 MG/0.4 ML SYR SUBCUT SCH (20:45)
[2022-02-03 04:48] LABS: ABS Basophils 0.1 10^3/ul (0-0.2); ABS Eosinophils 0.4 10^3/ul (0-0.6); ABS Lymphocytes 1.9 10^3/ul (1.0-4.8); ABS Monocytes 0.8 10^3/ul (0-0.8); ABS Neutrophils 15.6 10^3/ul (1.5-7.7); Eosinophil % 2.3 %; Hematocrit 31 % (35-47); Hemoglobin 9.6 g/dL (12.0-16.0); Mean Corpuscular HGB Conc 30 g/dL (31-36); Mean Corpuscular Hemoglobin 23 pg (27-31); Mean Corpuscular Volume 74 fL (80-97); Mean Platelet Volume 8.3 fL (7.4-10.4); Platelet Count 240 10^3/uL (150-450); Red Blood Count 4.22 10^6 /uL (3.70-4.87); Red Cell Distribution Width 19 % (10-15); White Blood Count 18.8 10^3/uL (3.5-10.8)
[2022-02-03 05:21] LABS: Calcium 8.2 mg/dL (8.6-10.3); Potassium 3.8 mmol/L (3.5-5.0); eGFR CKD-EPI 120.6 (>60)
[2022-02-03] MEDS: Sulfamethox/Trimethoprim DS TAB 800/160 mg PO SCH (07:55)
[2022-02-03] MEDS ORDERED: Potassium Chlor 20 meq TAB.ER PO ONE (08:31)
[2022-02-03] MEDS: Nystatin SUSPENSION 100,000 UNITS/ML UDC PO SCH ×4 (09:03→21:19)
[2022-02-03] MEDS: LORazepam 2 mg VIAL 1 ml IV PUSH PRN (10:10)
[2022-02-03] MEDS: Mometasone 220 MCG MDI INH SCH (19:36)
[2022-02-03] MEDS: Enoxaparin 40 MG/0.4 ML SYR SUBCUT SCH (21:18)
[2022-02-04 05:52] LABS: ABS Eosinophils 0.6 10^3/ul (0-0.6); ABS Lymphocytes 1.9 10^3/ul (1.0-4.8); ABS Neutrophils 16.1 10^3/ul (1.5-7.7); Eosinophil % 3.1 %; Hematocrit 32 % (35-47); Lymphocyte % 9.7 %; Mean Corpuscular HGB Conc 31 g/dL (31-36); Mean Corpuscular Hemoglobin 23 pg (27-31); Mean Corpuscular Volume 75 fL (80-97); Mean Platelet Volume 8.4 fL (7.4-10.4); Platelet Count 226 10^3/uL (150-450); Red Cell Distribution Width 19 % (10-15); White Blood Count 19.6 10^3/uL (3.5-10.8)
[2022-02-04 06:06] LABS: Calcium 8.9 mg/dL (8.6-10.3); Potassium 4.5 mmol/L (3.5-5.0); eGFR CKD-EPI 121.8 (>60)
[2022-02-04] MEDS: Nystatin SUSPENSION 100,000 UNITS/ML UDC PO SCH ×4 (09:33→21:12)
[2022-02-04] MEDS ORDERED: Polyethylene Glycol 3350 17 GM PACKET PO PRN (11:04)
[2022-02-04] MEDS ORDERED: Senna TAB 8.6 mg TAB PO PRN (11:04)
[2022-02-04] MEDS ORDERED: Sodium Phosphate ADULT ENEMA 133 ML BTL PR ONE (11:18)
[2022-02-04] MEDS ORDERED: Magnesium CITRATE LIQ 300 ML BTL PO ONE (12:29)
[2022-02-04] MEDS ORDERED: Lactulose 30 ml UDC PO ONE (12:44)
[2022-02-04] MEDS: Mometasone 220 MCG MDI INH SCH (20:02)
[2022-02-04] MEDS: Enoxaparin 40 MG/0.4 ML SYR SUBCUT SCH (21:11)
[2022-02-05 04:48] LABS: ABS Basophils 0.2 10^3/ul (0-0.2); ABS Eosinophils 0.5 10^3/ul (0-0.6); ABS Lymphocytes 2.1 10^3/ul (1.0-4.8); ABS Monocytes 0.9 10^3/ul (0-0.8); ABS Neutrophils 15.2 10^3/ul (1.5-7.7); Eosinophil % 2.6 %; Hematocrit 33 % (35-47); Hemoglobin 10.2 g/dL (12.0-16.0); Mean Corpuscular HGB Conc 31 g/dL (31-36); Mean Corpuscular Hemoglobin 23 pg (27-31); Mean Corpuscular Volume 75 fL (80-97); Mean Platelet Volume 8.2 fL (7.4-10.4); Platelet Count 208 10^3/uL (150-450); Red Blood Count 4.43 10^6 /uL (3.70-4.87); Red Cell Distribution Width 20 % (10-15); White Blood Count 18.8 10^3/uL (3.5-10.8)
[2022-02-05 05:16] LABS: Calcium 8.6 mg/dL (8.6-10.3); Potassium 4.1 mmol/L (3.5-5.0); eGFR CKD-EPI 127.4 (>60)
[2022-02-05] MEDS: Nystatin SUSPENSION 100,000 UNITS/ML UDC PO SCH ×4 (09:32→20:29)
[2022-02-05] MEDS ORDERED: LORazepam 2 mg VIAL 1 ml IV PUSH PRN (10:20)
[2022-02-05] MEDS ORDERED: Lorazepam PYXIS KEY PRN (10:20)
[2022-02-05] MEDS: Mometasone 220 MCG MDI INH SCH (20:10)
[2022-02-05] MEDS: Enoxaparin 40 MG/0.4 ML SYR SUBCUT SCH (20:29)
[2022-02-06 05:35] LABS: ABS Eosinophils 0.4 10^3/ul (0-0.6); ABS Lymphocytes 2.2 10^3/ul (1.0-4.8); ABS Neutrophils 14.5 10^3/ul (1.5-7.7); Eosinophil % 1.9 %; Hematocrit 34 % (35-47); Hemoglobin 10.2 g/dL (12.0-16.0); Lymphocyte % 12.1 %; Mean Corpuscular HGB Conc 30 g/dL (31-36); Mean Corpuscular Hemoglobin 23 pg (27-31); Mean Corpuscular Volume 75 fL (80-97); Mean Platelet Volume 8.6 fL (7.4-10.4); Platelet Count 203 10^3/uL (150-450); Red Blood Count 4.48 10^6 /uL (3.70-4.87); Red Cell Distribution Width 20 % (10-15); White Blood Count 18.2 10^3/uL (3.5-10.8)
[2022-02-06 06:00] LABS: Calcium 9.1 mg/dL (8.6-10.3); Potassium 4.3 mmol/L (3.5-5.0); eGFR CKD-EPI 125.9 (>60)
[2022-02-06] MEDS: Enoxaparin 40 MG/0.4 ML SYR SUBCUT SCH (20:29)
[2022-02-06] MEDS: Mometasone 220 MCG MDI INH SCH (20:47)
[2022-02-07 05:11] LABS: ABS Basophils 0.1 10^3/ul (0-0.2); ABS Eosinophils 0.3 10^3/ul (0-0.6); ABS Monocytes 0.8 10^3/ul (0-0.8); ABS Neutrophils 12.8 10^3/ul (1.5-7.7); Hematocrit 32 % (35-47); Hemoglobin 9.8 g/dL (12.0-16.0); Lymphocyte % 12.6 %; Mean Corpuscular HGB Conc 31 g/dL (31-36); Mean Corpuscular Hemoglobin 23 pg (27-31); Mean Corpuscular Volume 76 fL (80-97); Mean Platelet Volume 8.4 fL (7.4-10.4); Platelet Count 174 10^3/uL (150-450); Red Blood Count 4.24 10^6 /uL (3.70-4.87); Red Cell Distribution Width 20 % (10-15); White Blood Count 16.1 10^3/uL (3.5-10.8)
[2022-02-07 05:30] LABS: Blood Urea Nitrogen 12 mg/dL (6-24); Chloride 88 mmol/L (101-111); Glucose 76 mg/dL (70-100); Magnesium 1.7 mg/dL (1.9-2.7); Potassium 4.2 mmol/L (3.5-5.0); Sodium 139 mmol/L (135-145); eGFR CKD-EPI 127.4 (>60)
[2022-02-07 05:47] LABS: CO2 Carbon Dioxide 48 mmol/L (22-32)
[2022-02-07] MEDS ORDERED: Magnesium Sulfate 2 gm BAG 2 GM/50 ML BAG IVPB ONE (07:40)
[2022-02-07 14:22] LABS: Urine Appearance Clear; Urine Bilirubin Negative (Negative); Urine Blood 2+ (Negative); Urine Color Straw; Urine Glucose Negative (Negative); Urine Ketones Negative (Negative); Urine Nitrite Negative (Negative); Urine Protein Negative (Negative); Urine Specific Gravity 1.005 (1.002-1.030); Urine Urobilinogen Negative (Negative)
[2022-02-07 14:39] LABS: Urine Bacteria Absent (Absent); Urine Red Blood Cell Trace(0-2/hpf) (Absent); Urine Squamous Epithelial Cell Present (Absent); Urine White Blood Cell Trace(0-5/hpf) (Absent)
[2022-02-07] MEDS: Mometasone 220 MCG MDI INH SCH (19:30)
[2022-02-07] MEDS: Enoxaparin 40 MG/0.4 ML SYR SUBCUT SCH (22:22)
[2022-02-08 05:29] LABS: ABS Basophils 0.1 10^3/ul (0-0.2); ABS Eosinophils 0.2 10^3/ul (0-0.6); ABS Lymphocytes 1.8 10^3/ul (1.0-4.8); ABS Monocytes 0.7 10^3/ul (0-0.8); ABS Neutrophils 9.2 10^3/ul (1.5-7.7); Hematocrit 34 % (35-47); Hemoglobin 10.3 g/dL (12.0-16.0); Lymphocyte % 14.8 %; Mean Corpuscular HGB Conc 30 g/dL (31-36); Mean Corpuscular Hemoglobin 23 pg (27-31); Mean Corpuscular Volume 76 fL (80-97); Mean Platelet Volume 8.5 fL (7.4-10.4); Platelet Count 150 10^3/uL (150-450); Red Blood Count 4.49 10^6 /uL (3.70-4.87); Red Cell Distribution Width 20 % (10-15)
[2022-02-08 05:47] LABS: Blood Urea Nitrogen 12 mg/dL (6-24); Chloride 88 mmol/L (101-111); Glucose 80 mg/dL (70-100); Magnesium 1.8 mg/dL (1.9-2.7); Potassium 4.2 mmol/L (3.5-5.0); Sodium 136 mmol/L (135-145); eGFR CKD-EPI 131.7 (>60)
[2022-02-08 06:04] LABS: CO2 Carbon Dioxide 51 mmol/L (22-32)
[2022-02-08] MEDS ORDERED: Furosemide 40 mg/4 ml IV VIAL IV ONE (09:28)
[2022-02-08] MEDS: Enoxaparin 40 MG/0.4 ML SYR SUBCUT SCH (21:23)
[2022-02-08] MEDS: Mometasone 220 MCG MDI INH SCH (23:37)
[2022-02-09 05:30] LABS: ABS Basophils 0.1 10^3/ul (0-0.2); ABS Eosinophils 0.3 10^3/ul (0-0.6); ABS Lymphocytes 1.7 10^3/ul (1.0-4.8); ABS Monocytes 0.6 10^3/ul (0-0.8); ABS Neutrophils 9.5 10^3/ul (1.5-7.7); Eosinophil % 2.8 %; Hematocrit 30 % (35-47); Hemoglobin 9.2 g/dL (12.0-16.0); Lymphocyte % 13.6 %; Mean Corpuscular HGB Conc 31 g/dL (31-36); Mean Corpuscular Hemoglobin 23 pg (27-31); Mean Corpuscular Volume 75 fL (80-97); Mean Platelet Volume 8.6 fL (7.4-10.4); Platelet Count 166 10^3/uL (150-450); Red Blood Count 3.98 10^6 /uL (3.70-4.87); Red Cell Distribution Width 20 % (10-15); White Blood Count 12.3 10^3/uL (3.5-10.8)
[2022-02-09 07:01] LABS: Blood Urea Nitrogen 12 mg/dL (6-24); Calcium 9.1 mg/dL (8.6-10.3); Chloride 85 mmol/L (101-111); Glucose 82 mg/dL (70-100); Magnesium 1.7 mg/dL (1.9-2.7); Potassium 4.4 mmol/L (3.5-5.0); Sodium 139 mmol/L (135-145); eGFR CKD-EPI 128.2 (>60)
[2022-02-09 07:38] LABS: CO2 Carbon Dioxide 47 mmol/L (22-32)
[2022-02-09] MEDS: Albuterol/Ipratropium NEB.SOL (2.5/0.5 MG) 3 ML NEB.SOLN INH PRN (09:56)
[2022-02-09] MEDS ORDERED: Magnesium Sulfate 2 gm BAG 2 GM/50 ML BAG IVPB ONE (10:25)
[2022-02-09] MEDS ORDERED: Vancomycin 1,000 MG in NS 0.9% 250 ml 250 ML IVPB ONE (11:00)
[2022-02-09] MEDS ORDERED: Vancomycin per Pharmacy 1 EA NOTE FOLLOW UP SCH (11:00)
[2022-02-09] MEDS: Mometasone 220 MCG MDI INH SCH (19:06)
[2022-02-09] MEDS: Enoxaparin 40 MG/0.4 ML SYR SUBCUT SCH (20:04)
[2022-02-09] MEDS: Vancomycin 1000 MG in NS 0.9% 250 ML IVPB SCH (22:22)
[2022-02-10] MEDS: Vancomycin 1000 MG in NS 0.9% 250 ML IVPB SCH (11:11)
[2022-02-10 12:10] LABS: Hematocrit 31 % (35-47); Hemoglobin 9.2 g/dL (12.0-16.0); Mean Corpuscular HGB Conc 30 g/dL (31-36); Mean Corpuscular Hemoglobin 23 pg (27-31); Mean Corpuscular Volume 77 fL (80-97); Mean Platelet Volume 8.7 fL (7.4-10.4); Platelet Count 175 10^3/uL (150-450); Red Blood Count 3.97 10^6 /uL (3.70-4.87); Red Cell Distribution Width 21 % (10-15); White Blood Count 22.2 10^3/uL (3.5-10.8)
[2022-02-10 13:01] LABS: ABS Basophils 0.1 10^3/ul (0-0.2); ABS Eosinophils 0.3 10^3/ul (0-0.6); ABS Lymphocytes 0.6 10^3/ul (1.0-4.8); ABS Monocytes 0.1 10^3/ul (0-0.8); Eosinophil % 1.3 %; Lymphocyte % 2.5 %
[2022-02-10 13:14] LABS: Albumin 3.1 g/dL (3.2-5.2); Calcium 8.6 mg/dL (8.6-10.3); Potassium 4.2 mmol/L (3.5-5.0); Total Bilirubin 0.2 mg/dL (0.2-1.0); Total Protein 6.1 g/dL (6.4-8.9); eGFR CKD-EPI 121.8 (>60)
[2022-02-10] MEDS: Mometasone 220 MCG MDI INH SCH (19:30)
[2022-02-10] MEDS: Enoxaparin 40 MG/0.4 ML SYR SUBCUT SCH (21:47)
[2022-02-11] MEDS: Vancomycin 1000 MG in NS 0.9% 250 ML IVPB SCH ×2 (00:17→11:51)
[2022-02-11 08:37] LABS: ABS Basophils 0.2 10^3/ul (0-0.2); ABS Eosinophils 0.5 10^3/ul (0-0.6); ABS Lymphocytes 1.1 10^3/ul (1.0-4.8); ABS Monocytes 0.4 10^3/ul (0-0.8); Hematocrit 29 % (35-47); Hemoglobin 8.7 g/dL (12.0-16.0); Lymphocyte % 6.6 %; Mean Corpuscular HGB Conc 30 g/dL (31-36); Mean Corpuscular Hemoglobin 23 pg (27-31); Mean Corpuscular Volume 77 fL (80-97); Mean Platelet Volume 8.3 fL (7.4-10.4); Platelet Count 163 10^3/uL (150-450); Red Blood Count 3.75 10^6 /uL (3.70-4.87); Red Cell Distribution Width 21 % (10-15); White Blood Count 17.2 10^3/uL (3.5-10.8)
[2022-02-11 09:31] LABS: Blood Urea Nitrogen 8 mg/dL (6-24); Chloride 91 mmol/L (101-111); Glucose 120 mg/dL (70-100); Magnesium 1.6 mg/dL (1.9-2.7); Potassium 3.9 mmol/L (3.5-5.0); Sodium 143 mmol/L (135-145); eGFR CKD-EPI 129.1 (>60)
[2022-02-11 09:53] LABS: CO2 Carbon Dioxide 47 mmol/L (22-32)
[2022-02-11] MEDS ORDERED: Magnesium Sulfate IV 3 GM in NS 0.9% 100 ml BAG 100 ML IVPB ONE (12:00)
[2022-02-11 13:31] VITALS: BP 142/82
[2022-02-12] MEDS ORDERED: Vancomycin Trough Check NOTE FOLLOW UP ONE (10:30)
== END 2022-02-11 16:30 | disposition short-term general hospital (02) | DRG 133 ==
LOC: ED 16:47 → EDHOLD 16:47 → SUATTDRO 21:18 → MED 01-21 02:26 → SUATTDRO 01-21 14:48 → ICU 01-21 15:19 → MED 02-09 19:40
PROVIDERS: ADMIT Internal Medicine; ATTEND Internal Medicine